=== PATIENT | female | born 1940 | race Caucasian/White ===

== ENCOUNTER → 2024-02-01 15:05 | Outpatient (REF) | payer OTHER, SELFPAY | LOC: RAD 15:05 | PROVIDERS: ATTENDING PHYSICIAN Nurse Practitioner; FAMILY PHYSICIAN Internal Medicine | DX: M54.50 Low back pain, unspecified (principal); M25.559 Pain in unspecified hip | CPT/HCPCS: 72100; 73502 ==

== ENCOUNTER → 2024-02-25 14:51 | Outpatient (REF) | payer OTHER, SELFPAY | LOC: PAVMRI 14:51 | PROVIDERS: ATTENDING PHYSICIAN Physical Medicine & Rehabilitation; FAMILY PHYSICIAN Internal Medicine | DX: M54.16 Radiculopathy, lumbar region (principal) | CPT/HCPCS: 72148 ==

== ENCOUNTER → 2024-02-29 12:49 | Outpatient (REF) | payer OTHER, SELFPAY | LOC: RAD 12:49 | PROVIDERS: ATTENDING PHYSICIAN Nurse Practitioner; FAMILY PHYSICIAN Internal Medicine | DX: J06.9 Acute upper respiratory infection, unspecified (principal) | CPT/HCPCS: 71046 ==

== ENCOUNTER → 2024-06-30 15:03 | Outpatient (REF) | payer OTHER, SELFPAY | LOC: RAD 15:03 | PROVIDERS: ATTENDING PHYSICIAN Nurse Practitioner | DX: R10.11 Right upper quadrant pain (principal) | CPT/HCPCS: 74176 ==

== ENCOUNTER → 2024-07-01 06:51 | Day surgery (SDC) | payer OTHER, SELFPAY | LOC: CATH 06:51 | PROVIDERS: ATTENDING PHYSICIAN Internal Medicine Cardiovascular Disease; FAMILY PHYSICIAN Internal Medicine; OTHER PHYSICIAN Nuclear Medicine Nuclear Cardiology | DX: I48.91 Unspecified atrial fibrillation (principal); Z53.09 Procedure and treatment not carried out because of other contraindication; I10 Essential (primary) hypertension; E78.00 Pure hypercholesterolemia, unspecified; K21.9 Gastro-esophageal reflux disease without esophagitis; G47.33 Obstructive sleep apnea (adult) (pediatric); Z79.01 Long term (current) use of anticoagulants ==

== ENCOUNTER → 2024-07-08 06:54 | Day surgery (SDC) | payer OTHER, SELFPAY | LOC: CATH 06:54 | PROVIDERS: ATTENDING PHYSICIAN Internal Medicine; FAMILY PHYSICIAN Internal Medicine; OTHER PHYSICIAN Nuclear Medicine Nuclear Cardiology | DX: I48.91 Unspecified atrial fibrillation (principal); Z53.09 Procedure and treatment not carried out because of other contraindication; I10 Essential (primary) hypertension; E78.00 Pure hypercholesterolemia, unspecified; K21.9 Gastro-esophageal reflux disease without esophagitis; G47.33 Obstructive sleep apnea (adult) (pediatric); Z79.01 Long term (current) use of anticoagulants | CPT/HCPCS: 93005 ==

== ENCOUNTER → 2024-07-15 15:48 | Outpatient (REF) | payer OTHER, SELFPAY | LOC: RCS 15:48 | PROVIDERS: ATTENDING PHYSICIAN Nuclear Medicine Nuclear Cardiology; FAMILY PHYSICIAN Internal Medicine | DX: I10 Essential (primary) hypertension (principal); I48.91 Unspecified atrial fibrillation | CPT/HCPCS: 93306 ==

== ENCOUNTER → 2024-08-26 13:12 | Outpatient (REF) | payer OTHER, SELFPAY | LOC: WDC 13:12 | PROVIDERS: ATTENDING PHYSICIAN Nurse Practitioner | DX: Z12.31 Encounter for screening mammogram for malignant neoplasm of breast (principal) | CPT/HCPCS: 77063; 77067 ==

== ENCOUNTER 2024-09-01 12:24 | Emergency (ER) | payer OTHER, SELFPAY ==
[2024-09-01 12:29] VITALS: BP 118/53
[2024-09-01 12:52] LABS: % Basophils 0.8 % (0-2); % Eosinophils 2.8 % (0-6); % Immature Granulocytes 0.2 % (0-0.5); % Monocytes 10.2 % (1.7-9.3); Absolute Basophils 0.1 10^3/uL (0-0.2); Absolute Eosinophils 0.2 10^3/uL (0-0.7); Absolute Lymphocytes 1.7 10^3/uL (1.2-3.4); Absolute Monocytes 0.7 10^3/uL (0.1-0.6); Absolute Neutrophils 3.8 10^3/uL (1.4-6.5); Hematocrit 35.6 % (37.0-47.0); Hemoglobin 11.7 g/dL (12.0-16.0); Mean Corp Hgb Conc. 32.9 g/dL (33.0-37.0); Mean Corpuscular Hgb 26.7 pg (27.0-31.0); Mean Corpuscular Volume 81.3 fL (81.0-99.0); Mean Platelet Volume 9.4 fL (7.4-10.4); Nucleated Red Blood Cells % 0 %; Platelet Count 281 10^3/uL (130-400); Red Blood Cell Count 4.38 10^6/uL (4.20-5.40); Red Cell Dist. Width 15.1 % (11.5-14.5); White Blood Cell Count 6.4 10^3/uL (4.8-10.8)
[2024-09-01 13:10] LABS: ALT (SGPT) 19 U/L (0-35); AST (SGOT) 21 U/L (14-36); Albumin 4.3 g/dl (3.5-5.0); Alkaline Phosphatase 116 U/L (38-126); Blood Urea Nitrogen 24 mg/dl (7-17); Calcium 9.6 mg/dl (8.4-10.2); Chloride 102 mmol/L (98-107); Glucose 94 mg/dl (70-99); Potassium 3.6 mmol/L (3.5-5.1); Sodium 140 mmol/L (135-145); Total Bilirubin 0.2 mg/dl (0.2-1.3); Total Protein 6.6 g/dl (6.3-8.2); eGFR 29.76
[2024-09-01 13:15] LABS: NT-proBNP 71.7 pg/ml; Troponin I < 0.012 ng/ml
[2024-09-01 13:18] LABS: Carbon Dioxide 24 mmol/L (22-30)
--- NOTE | 2024-09-01 13:36 | ED.GENMED ---
History of Present Illness
General
Chief Complaint: Breathing Problem
Source: patient
Time Seen by Provider: 09/01/24 13:26
History of Present Illness
History of Present Illness:
84yoF with a history of atrial fibrillation on Eliquis, hypertension, hyperlipidemia, COPD, and GERD presenting for evaluation of shortness of breath. Patient started with shortness of breath last weekend. Symptoms are mainly on exertion. She was
grocery shopping 3 days ago when she thought she was going to pass out due to her dyspnea. She has minimal symptoms at rest. She also is having chest heaviness but denies any overt pain. Of note, patient returned from a trip to [place] on 08/14/24.
She had bilateral leg swelling after she returned from her trip. Her Lasix dose was doubled for 5 days and she was instructed to wear compression stockings. Her leg swelling has since improved and she denies any calf pain. She reports compliance
with her Eliquis and has not missed any doses.
Past History
Past History
ED Past Medical History: Arrthythmia (A. fib), COPD, HTN and Hypercholesterolemia
ED Past Surgical History: Cardiac (Cardiac ablation) and Gynecological (Hysterectomy)
Social History
Tobacco: Non-smoker
Alcohol: Occasional
Drug: None
Personal:
Living: with family
Phy Exam
General Physical Exam
General Presentation: well appearing and no apparent distress
General age: appears stated age
General Skin: warm and dry
General Habitus: normal and elderly
General Mental: alert
General Hydration: appears well hydrated
ENT Exam
ENT Exam: normocephalic
Cardiovascular Exam
Cardiovascular Exam: regular rate/rhythm, no edema (No pitting edema in bilateral lower extremities) and no murmur
Pulmonary Exam
Pulmonary Exam: lungs clear, no respiratory distress, no rales and no rhonchi
[place] Coma Scale
Eye Opening: Spontaneous
Verbal Response: Oriented
Motor Response: Obeys Commands
GCS Total Score: 15
Skin Exam
Skin Exam: normal color and warm/dry
Psychiatric Exam
Psychiatric Exam: normal mood/affect
Scores
Heart Failure Risk
Heart Failure Risk Score: Not Applicable
Course
Orders/Labs/Results
Orders:
Orders
09/01/24 12:31
Electrocardiogram (*1) Urgent
Reason for Study: Other
Other Reason for Exam: Respiratory Distress
EKG- Treatment ONCE
09/01/24 12:43
Complete Blood Count/With Diff Urgent
Comprehensive Metabolic Panel Urgent
NT-proBNP Urgent
Troponin I Urgent
09/01/24 13:42
CR Chest - 2 Views Urgent
Comment:
Reason For Exam: SOB
Venous Doppler Lwr Ext Bilat [US Periph Venous LOWER Ext Mitchell] Urgent
Comment:
Reason For Exam: Bilateral leg swelling, recent travel
09/01/24 13:56
D-Dimer Urgent
09/01/24 15:[address] Non Medication Order As Directed
Physician Order: ambulatory pulse ox
Abnormal Lab Results
09/01/24
12:43
Hgb 11.7 L g/dL
(12.0-16.0)
Hct 35.6 L %
(37.0-47.0)
MCH 26.7 L pg
(27.0-31.0)
MCHC 32.9 L g/dL
(33.0-37.0)
RDW 15.1 H %
(11.5-14.5)
Absolute Monos (auto) 0.7 H 10^3/uL
(0.1-0.6)
Monocytes % 10.2 H %
(1.7-9.3)
BUN 24 H mg/dl
(7-17)
Creatinine 1.7 H mg/dL
(0.6-1.0)
09/01/24 12:43
09/01/24 12:43
Vital Signs
Initial and Last Documented VS:
Initial Vital Signs
Temp Pulse Resp BP Pulse Ox
98.1 F 76 19 118/53 96
09/01/24 12:29 09/01/24 12:29 09/01/24 12:29 09/01/24 12:29 09/01/24 12:29
Last Documented Vital Signs
Temp Pulse Resp BP Pulse Ox
98.1 F 76 19 118/53 96
09/01/24 12:29 09/01/24 12:29 09/01/24 12:29 09/01/24 12:29 09/01/24 12:29
MDM/Problems Addressed
Differential Diagnosis Includes:
84yoF here with SOB x several days. Symptoms are mainly exertional. Also c/o chest heaviness. Recent plane ride from [place] 2 weeks ago. Currently on Eliquis for afib. She is afebrile and hemodynamically stable. Oxygen saturation 96% in triage and
98-100% during exam. She is well appearing in no distress. Lungs CTA and respirations non-labored. Differential diagnosis includes but is not limited to: ACS, CHF, PE, pneumonia
Initial ED plan: Cardiac labs and EKG obtained in triage. Hemoglobin minimally decreased at 11.7. Creatinine 1.7 (baseline 1.5-1.6) Remainder of labs unremarkable. EKG shows NSR without ischemic changes. Troponin and BNP normal. Will check D-dimer,
CXR, and bilateral venous duplex.
*EKG
Interpreted by ED Provider?: Yes
EKG Intrepretation Date: 09/01/24
Heart Rate: 69
Rate: normal
Rhythm: sinus
[place]: normal axis
Interval: first degree heart block
QRS Pattern: normal QRS
Ischemia: no ischemia
*Critical Care Note
Total Time (30-74mins, 75-104mins- exclusive of procedures): Not Applicable
Update Note
Update Note:
D-dimer making PE very unlikely and bilateral venous duplex negative for DVT. CXR is clear without infiltrates. Oxygen saturation remains in the high 90s on multiple reassessments. Ambulatory pulse ox obtained and she maintained 97% throughout.
Patient also reports symptomatic improvement. No indication for admission. Advised f/u with PCP and logistics director. ED return precautions discussed. She expressed understanding and is agreeable to plan. She was discharged in stable condition.
ED Attending Note
-
Portions of this chart may have been created with voice recognition software.� Occasional wrong word or��sound alike� substitutions may have occurred due to the inherent limitations of voice recognition software.
Discharge Plan
Departure
Patient Disposition: Home (Routine Discharge)
Date of Disposition: 09/01/24
Time of Disposition: 15:58
Patient with high blood pressure during this ER visit?: No
Discharge Problem:
Shortness of breath
Instructions: Shortness of Breath (Dyspnea) (DC)
Prescriptions:
No Action
omeprazole 40 MG capsule,delayed release(DR/EC)
40 mg PO DAILY
Eliquis 5 MG tablet
5 mg PO BID
famotidine 40 MG tablet
40 mg PO PRN PRN (Reason: gastrointestinal issues)
mirtazapine 15 MG tablet
15 mg PO HS
losartan 50 MG tablet
100 mg PO DAILY
Trelegy Ellipta 1 EACH blister with device
1 ea IH HS
diltiazem HCl 180 mg capsule,extended release 24hr
180 mg PO BID Qty: 30 0RF
albuterol 90 mcg/actuation Aerosol
45 mcg INHALATION DAILY
fluoxetine [Prozac] 20 mg Capsule
20 mg PO DAILY
fluticasone propionate 50 mcg/actuation [place],Suspension
1 spray INTRANASAL DAILY
Systane Complete 0.6 % Drops
1 drp OPHTHALMIC (EYE) TID PRN (Reason: dry eyes)
atorvastatin 20 mg tablet
20 mg PO HS Qty: 90 3RF
Rx Instructions:
STOP simvastatin
furosemide 40 mg tablet
40 mg PO DAILY Qty: 90 3RF
Rx Instructions:
Note increased dose
Referrals:
Lucita Nelson MD [Family Provider] -
Activity Restrictions/Additional Instructions:
Please follow-up with your family doctor and logistics director. Return to the ER with any new or worsening symptoms.
Interventions
Interventions:
*Risk Screen - Suicide Last Done: 09/01/24 12:29
*General Assessment Last Done: 09/01/24 12:29
*Neglect/Abuse Screening Last Done: 09/01/24 12:29
ED- Fall Risk Assessment Last Done: 09/01/24 16:20
*Nursing Disposition Last Done: 09/01/24 16:20
ED- Cardiac Assessment Last Done: 09/01/24 14:00
ED- Pulmonary Assessment Last Done: 09/01/24 14:00
Discharge Date and Time
Discharge Date/Time: 09/01/24 16:21
Print Language: ITALIAN
[2024-09-01 14:30] LABS: D-Dimer < 0.27 ug/mlFEU (0.00-0.50)
== END 2024-09-01 16:21 | disposition home or self-care (01) ==
LOC: EMR 12:24
PROVIDERS: Emergency Medicine; Physician Assistant; EMERGENCY PHYSICIAN Emergency Medicine; FAMILY PHYSICIAN Internal Medicine
DX: R06.02 Shortness of breath (principal); I10 Essential (primary) hypertension; E78.00 Pure hypercholesterolemia, unspecified; I48.91 Unspecified atrial fibrillation; Z79.01 Long term (current) use of anticoagulants; J44.9 Chronic obstructive pulmonary disease, unspecified; K21.9 Gastro-esophageal reflux disease without esophagitis
CPT/HCPCS: 99285; 71046; 80053; 83880; 84484; 85025; 85379; 93005; 93970

== ENCOUNTER 2024-10-03 07:51 | Inpatient (IN) | payer OTHER, SELFPAY ==
[2024-10-03 08:33] VITALS: BP 121/72
[2024-10-03 08:34] VITALS: BMI 31.4
--- NOTE | 2024-10-03 09:05 | W.PN.CARDCBS ---
Addendum entered and electronically signed by Vidal Huggins DO 10/03/24 12:00:
I saw and examined the patient.
The Waiter/Waitress Formal's note was reviewed and I agree with the note.
Comment:
-Patient presents to the hospital today, 10/03/24, for Tikosyn loading following office visit 09/13/2024. Patient was seen in the office on 09/13/2024 and was in sinus rhythm at that time, but complained of ongoing dyspnea. Patient then wore a 5-day
CAM monitor as an outpatient that showed frequent atrial fibrillation. Patient has a history of PVI in 2017 and 2021. She is chronically on Cardizem CD 180 mg BID and Eliquis 5 BID. Patient is in atrial flutter currently.
Plan:
Tikosyn load 125mcg BID
Monitor EKG
Outpatient dose of Eliquis 5 mg BID will be changed to 2.5 mg BID based on age 84, Cre 1.5 and wt 182 lbs. No missed doses of Eliquis.
CV thursday if she fails to convert on her own.
Original Note:
Today's Communication / Plan
-
Start Tikosyn 125 mcg q 12 hours, CrCl is 38
Lower dose of Eliquis to 2.5 mg BID based on Cre 1.5 and age 84
Impression / Plan
-
PCP: Dr. Nelson
Cardiology: Dr. Huggins
Pulm: Dr. Horn
Impression:
Direct admission for Tikosyn load 10/03/24
Paroxysmal Afib
s/p PVI 06/29/18
s/p PVI 04/08/22
Chronic Eliquis therapy
Atypical atrial flutter
CKD 3b
Nonobstructive CAD by cath 06/2023
medical management of a small caliber 70% OM-1 lesion by cath 06/24/23
COPD/asthma
Sleep apnea
Depression on fluoxetine
Hypertension
Hypercholesterolemia
History of remote SVT
GERD
Echo 07/15/2024: EF 60 to 65%, no significant valve disease
Plan:
-Patient presents to the hospital today, 10/03/24, for Tikosyn loading following office visit 09/13/2024. Patient was seen in the office on 09/13/2024 and was in sinus rhythm at that time, but complained of ongoing dyspnea. Patient then wore a 5-day
CAM monitor as an outpatient that showed frequent atrial fibrillation. Patient has a history of PVI in 2017 and 2021. She is chronically on Cardizem CD 180 mg BID and Eliquis 5 BID. Patient is in atrial flutter currently.
-Patient did not take any of her usual medications at home today, now doses for all daily meds have been ordered.
-CrCl calculated by me is 38, we will start Tikosyn 125 mcg every 12 hours now.
-ECG reviewed by me shows QTc 415 ms and what looks like atypical atrial flutter
-Follow QTc, outpatient dose of Prozac 20 mg daily has been continued.
-Outpatient dose of Eliquis 5 mg BID will be changed to 2.5 mg BID based on age 84, Cre 1.5 and wt 182 lbs. No missed doses of Eliquis.
-CV Thursday if she fails to convert on her own
Progress Note - Bonding Machine Setter
Subjective
Date of Service: October 03, 2024
Feels overwhelmed, but no chest pain
Objective
Labs:
CBC 10/03/2024: WBC 11.1, hemoglobin 0.8, hematocrit 36.9, PLT 250,000
CMP 10/03/2024: Sodium 139, potassium 4.1, BUN 37, creatinine 1.5, magnesium 2.4, AST 20, ALT 19
Vital Signs and I&O:
Vital Signs
Temp Resp Pulse Ox
98 F 16 96
10/03/24 08:34 10/03/24 08:34 10/03/24 08:34
Vital Signs
Temp Resp Pulse Ox
98 F 16 96
10/03/24 08:34 10/03/24 08:34 10/03/24 08:34
Physical Exam
Physical Exam
GEN: NAD. AAOx3
HEENT: EOMI, MMM, wearing glasses
LUNGS: CTA B/L, no audible wheeze
CV: Atrial flutter on tele. Irreg irreg, S1/S2, no murmur
ABD: soft, BS+, NT, ND
EXT: No clubbing, cyanosis, lesions or edema B/L
NEURO: Gross non-focal
SKIN: Warm, dry and pink. No rash
[2024-10-03 09:19] VITALS: BMI 31.4
[2024-10-03 09:43] LABS: % Basophils 0.4 % (0-2); % Eosinophils 1.4 % (0-6); % Immature Granulocytes 0.4 % (0-0.5); % Lymphocytes 28.1 % (20.5-51.1); % Monocytes 7.4 % (1.7-9.3); % Neutrophils 62.3 % (42.2-75.2); Absolute Eosinophils 0.2 10^3/uL (0-0.7); Absolute Lymphocytes 3.1 10^3/uL (1.2-3.4); Absolute Monocytes 0.8 10^3/uL (0.1-0.6); Absolute Neutrophils 6.9 10^3/uL (1.4-6.5); Hematocrit 36.9 % (37.0-47.0); Hemoglobin 11.8 g/dL (12.0-16.0); Mean Corpuscular Hgb 27.3 pg (27.0-31.0); Mean Corpuscular Volume 85.2 fL (81.0-99.0); Mean Platelet Volume 9.3 fL (7.4-10.4); Nucleated Red Blood Cells % 0 %; Platelet Count 250 10^3/uL (130-400); Red Blood Cell Count 4.33 10^6/uL (4.20-5.40); Red Cell Dist. Width 15.9 % (11.5-14.5); White Blood Cell Count 11.1 10^3/uL (4.8-10.8)
[2024-10-03 10:07] LABS: ALT (SGPT) 19 U/L (0-35); AST (SGOT) 20 U/L (14-36); Albumin 4.4 g/dl (3.5-5.0); Alkaline Phosphatase 113 U/L (38-126); Blood Urea Nitrogen 37 mg/dl (7-17); Calcium 9.4 mg/dl (8.4-10.2); Carbon Dioxide 26 mmol/L (22-30); Chloride 103 mmol/L (98-107); Estimated Creatinine Clearance 30 ml/min; Glucose 80 mg/dl (70-99); Magnesium 2.4 mg/dl (1.6-2.3); Potassium 4.1 mmol/L (3.5-5.1); Sodium 139 mmol/L (135-145); Total Bilirubin 0.2 mg/dl (0.2-1.3); Total Protein 6.7 g/dl (6.3-8.2); eGFR 34.58
[2024-10-03] MEDS: ProAIR HFA INHALER 1 PUFF INH (10:16)
[2024-10-03] MEDS: SYMBICORT 80/4.5 MCG INHALER 2 PUFF INH ×2 (10:16→19:26)
[2024-10-03] MEDS: SPIRIVA RESPIMAT 2.5 MCG 2 PUFF INH (10:16)
[2024-10-03] MEDS: CARDIZEM CD 180 MG PO ×2 (10:32→20:38)
[2024-10-03] MEDS: PROTONIX 40 MG PO (10:32)
[2024-10-03] MEDS: PEPCID 40 MG PO ×2 (10:33→20:38)
[2024-10-03] MEDS: PROZAC 20 MG PO (10:33)
[2024-10-03] MEDS: LASIX 40 MG PO (10:33)
[2024-10-03] MEDS: ELIQUIS 5 MG PO (10:33)
[2024-10-03] MEDS: COZAAR 100 MG PO (10:33)
--- NOTE | 2024-10-03 10:38 | PTCARENOTE ---
patient is a direct admit this am for Tom. Giuliana JOHNS aware and in seeing patient. patient placed on monitor Afib, VSS. EKG obtained, blood work done and sent to lab. INT placed in right AC. patient oriented to room and surroundings.
--- NOTE | 2024-10-03 10:40 | W.CARD.TIKOS ---
Initiate Tikosyn
-
I verify that the patient has not taken any verapamil (Isoptin/Calan), ketoconazole (Nizoral), cimetidine (Tagamet), trimethoprim (Trimpex), trimethoprim/sulfamethoxazole (Bactrim), megesterol (Megace), prochlorperazine (Compazine),
hydrochlorothiazide (HCTZ), dolutegravir (Tivicay) or any Class I or Class III anti-arrhythmic within the last three days
AND
I verify that the patient has not taken amiodarone within the last THREE months, or that the patient's amiodarone plasma concentration is <0.3 mcg/mL.
Creatinine 1.5 mg/dL (0.6-1.0) H 10/03/24 09:37
Estimated Creat Clear 30 ml/min 10/03/24 09:37
CrCl calculated by me is 38
Does patient have a Ventricular Conduction Abnormality: No
I have assessed the baseline QTc interval (using QT for heart rate less than 60 bpm) and deemed the patient is appropriate for Dofetilide therapy. I understand that Tikosyn is contraindicated if the QTc is >440msec (500msec in patients with
ventricular conduction abnormalities).
Baseline QTc (in msec): 415
Ordering Physician: Vidal Huggins
[2024-10-03] MEDS: TIKOSYN 125 MCG PO ×2 (11:00→22:03)
[2024-10-03 11:42] VITALS: BP 127/60
--- NOTE | 2024-10-03 13:36 | CM ---
spoke to pt in room, she is prev indep, lives with her cousin in a 1 story home with 2 steps to enter. she denies any dc planning needs. she has a CPAP she uses. plan is for dc to home when medically stable
[2024-10-03 15:22] VITALS: BP 103/60
[2024-10-03 19:42] VITALS: BP 98/47
[2024-10-03 20:35] VITALS: BP 94/51
[2024-10-03] MEDS: ELIQUIS 2.5 MG PO (20:38)
[2024-10-03] MEDS: REMERON 15 MG PO (22:01)
[2024-10-03] MEDS: LIPITOR 20 MG PO (22:01)
[2024-10-04] VITALS (8 sets, daily range): BP systolic 99–126; BP diastolic 42–61; BMI 31.2
--- NOTE | 2024-10-04 00:12 | PTCARENOTE ---
Pt received 2nd dose Tikosyn @2200 and 2 hours post EKG QTc 430.
[2024-10-04] MEDS: AMBIEN 5 MG PO (01:12)
[2024-10-04 05:38] LABS: Hemoglobin 11.2 g/dL (12.0-16.0); Mean Corpuscular Hgb 27.7 pg (27.0-31.0); Mean Corpuscular Volume 86.4 fL (81.0-99.0); Mean Platelet Volume 9.3 fL (7.4-10.4); Platelet Count 221 10^3/uL (130-400); Red Blood Cell Count 4.05 10^6/uL (4.20-5.40); White Blood Cell Count 8.7 10^3/uL (4.8-10.8)
[2024-10-04 06:04] LABS: Blood Urea Nitrogen 30 mg/dl (7-17); Calcium 8.7 mg/dl (8.4-10.2); Carbon Dioxide 25 mmol/L (22-30); Chloride 103 mmol/L (98-107); Estimated Creatinine Clearance 32 ml/min; Glucose 86 mg/dl (70-99); Potassium 3.9 mmol/L (3.5-5.1); Sodium 139 mmol/L (135-145); eGFR 37.56
[2024-10-04] MEDS: ProAIR HFA INHALER 1 PUFF INH (07:33)
[2024-10-04] MEDS: SYMBICORT 80/4.5 MCG INHALER 2 PUFF INH ×2 (07:33→19:24)
[2024-10-04] MEDS: SPIRIVA RESPIMAT 2.5 MCG 2 PUFF INH (07:33)
--- NOTE | 2024-10-04 09:00 | W.PN.CARDCBS ---
Addendum entered and electronically signed by Jessica Gillis MD 10/04/24 09:32:
I saw and examined the patient.
The [employer] Gold Attendant's note was reviewed and I agree with the note.
Comment: Patient with some shortness of breath with activity which she tells me is common with atrial fibrillation. She appears to have converted to sinus rhythm on telemetry monitoring.
Exam not significantly volume overloaded.
Continue dofetilide load with checking EKG and telemetry.
Reassess patient today if she remains short of breath consider chest x-ray.
Will add proBNP.
Original Note:
Today's Communication / Plan
-
5th dose of Tikosyn in AM
QTc stable after 2nd dose last night and also spontaneously converted to SR
Follow-up SOB later today, was just on a 12 course of prednisone ordered by her tire debeader that finished 09/26/24
Impression / Plan
-
PCP: Dr. Nelson
Cardiology: Dr. Huggins
Pulm: Dr. Horn
Impression:
Direct admission for Tikosyn load 10/03/24
Paroxysmal Afib
s/p PVI 06/29/18
s/p PVI 04/08/22
Chronic Eliquis therapy
Atypical atrial flutter
CKD 3b
Nonobstructive CAD by cath 06/2023
medical management of a small caliber 70% OM-1 lesion by cath 06/24/23
COPD/asthma
Sleep apnea
Depression on fluoxetine
Hypertension
Hypercholesterolemia
History of remote SVT
GERD
Echo 07/15/2024: EF 60 to 65%, no significant valve disease
Plan:
-QTc stable at 430 after 2nd dose of Tikosyn 125 mcg q 12 hours that was given Thursday night. 3rd dose given Thursday morning and await ECG.
-Spontaneously converted to SR overnight and remains in SR
-Outpatient dose of Eliquis 5 mg BID was changed to 2.5 mg BID based on age 84, Cre 1.5 and wt 182 lbs on 10/03/24. Cre improved to 1.4 on 10/04/24 and so Eliquis dose increased back to 5 mg BID including an extra 2.5 mg dose on 10/04/24 AM. No
missed doses of Eliquis.
-Follow QTc, outpatient dose of Prozac 20 mg daily has been continued.
-SOB with washing up in the room, but says this is not far from her baseline. Patient follows with Pulm as an outpatient and was placed on a 12 day course of prednisone 09/14/24 which is now done. She is ordered her usual inhalers. Pulse ox 98% on RA
-Likely d/c to home 10/05/24 pending rhythm and QTc
HPI: Patient presents to the hospital today, 10/03/24, for Tikosyn loading following office visit 09/13/2024. Patient was seen in the office on 09/13/2024 and was in sinus rhythm at that time, but complained of ongoing dyspnea. Patient then wore a
5-day CAM monitor as an outpatient that showed frequent atrial fibrillation. Patient has a history of PVI in 2017 and 2021. She is chronically on Cardizem CD 180 mg BID and Eliquis 5 BID. Patient is in atrial flutter currently.
Progress Note - Buttonhole Maker Hand
Subjective
Date of Service: October 04, 2024
She is SOB after washing up
Objective
Labs:
10/04/24 05:01
10/04/24 05:01
Labs
Hgb 11.2 g/dL (12.0-16.0) L 10/04/24 05:01
Hct 35.0 % (37.0-47.0) L 10/04/24 05:01
Plt Count 221 10^3/uL (130-400) 10/04/24 05:01
Sodium 139 mmol/L (135-145) 10/04/24 05:01
Potassium 3.9 mmol/L (3.5-5.1) 10/04/24 05:01
BUN 30 mg/dl (7-17) H 10/04/24 05:01
Creatinine 1.4 mg/dL (0.6-1.0) H 10/04/24 05:01
Glucose 86 mg/dl (70-99) 10/04/24 05:01
Vital Signs and I&O:
Vital Signs
Temp Pulse Resp BP Pulse Ox
97.5 F 84 18 126/59 98
10/04/24 08:10 10/04/24 07:41 10/04/24 08:10 10/04/24 04:52 10/04/24 08:10
Vital Signs
Temp Pulse Resp BP Pulse Ox
97.5 F 84 18 126/59 98
10/04/24 08:10 10/04/24 07:41 10/04/24 08:10 10/04/24 04:52 10/04/24 08:10
Physical Exam
Physical Exam
GEN: NAD. AAOx3
HEENT: EOMI
LUNGS: RA. No audible wheeze
CV: SR on tele
ABD: ND
EXT: No edema B/L
NEURO: Gross non-focal
SKIN: No rash
[2024-10-04] MEDS: LASIX 40 MG PO (09:12)
[2024-10-04] MEDS: ELIQUIS 2.5 MG PO ×2 (09:12→09:32)
[2024-10-04] MEDS: PEPCID 40 MG PO ×2 (09:13→20:09)
[2024-10-04] MEDS: PROTONIX 40 MG PO (09:13)
[2024-10-04] MEDS: PROZAC 20 MG PO (09:13)
[2024-10-04] MEDS: CARDIZEM CD 180 MG PO ×2 (09:13→20:08)
[2024-10-04] MEDS: TIKOSYN 125 MCG PO ×2 (09:13→20:09)
[2024-10-04] MEDS: COZAAR 100 MG PO (09:17)
[2024-10-04 10:37] LABS: NT-proBNP 133 pg/ml
[2024-10-04] MEDS: ELIQUIS 5 MG PO (20:09)
[2024-10-04] MEDS: LIPITOR 20 MG PO (22:08)
[2024-10-04] MEDS: REMERON 15 MG PO (22:08)
--- NOTE | 2024-10-04 22:31 | PTCARENOTE ---
Pt received 4th dose Tikosyn with 2hour f/u EKG SR QTc 444
--- NOTE | 2024-10-05 04:08 | DOWNTIME ---
There was a [employer] Client Podiatry Teacher Downtime on 10/05/2024 from 0100 to 10/05/2024 at 0350. Downtime documentation of patient's care, including medication administrations, has been reconciled in the electronic record per guidelines. Refer to the
patient's paper chart under the miscellaneous tab to see printed paper medication records and downtime forms.
[2024-10-05 04:55] VITALS: BP 138/65
[2024-10-05 04:56] VITALS: BMI 31.4
[2024-10-05 05:41] LABS: Blood Urea Nitrogen 27 mg/dl (7-17); Calcium 8.7 mg/dl (8.4-10.2); Carbon Dioxide 23 mmol/L (22-30); Chloride 104 mmol/L (98-107); Estimated Creatinine Clearance 32 ml/min; Glucose 103 mg/dl (70-99); Sodium 138 mmol/L (135-145); eGFR 37.56
[2024-10-05 07:33] VITALS: BP 121/65
[2024-10-05] MEDS: SPIRIVA RESPIMAT 2.5 MCG 2 PUFF INH (07:58)
[2024-10-05] MEDS: ProAIR HFA INHALER 1 PUFF INH (07:59)
[2024-10-05] MEDS: SYMBICORT 80/4.5 MCG INHALER 2 PUFF INH (07:59)
[2024-10-05] MEDS: PROTONIX 40 MG PO (08:06)
[2024-10-05] MEDS: COZAAR 100 MG PO (08:06)
[2024-10-05] MEDS: LASIX 40 MG PO (08:06)
[2024-10-05] MEDS: ELIQUIS 5 MG PO (08:07)
[2024-10-05] MEDS: PEPCID 40 MG PO (08:07)
[2024-10-05] MEDS: PROZAC 20 MG PO (08:07)
[2024-10-05] MEDS: CARDIZEM CD 180 MG PO (08:08)
[2024-10-05] MEDS: TIKOSYN 125 MCG PO (08:12)
--- NOTE | 2024-10-05 08:47 | PTCARENOTE ---
Assumed care of pt from night RN. Pt received awake and alert, Ox3. VSS, CM shows NSR/SB 60's, POX 95% on RA. Tikosyn dose # 5 given, EKG pending in 2 hrs. Pt denies any pain or discomfort.
--- NOTE | 2024-10-05 08:48 | W.PN.CARDCBS ---
Addendum entered and electronically signed by Susanna Durand PA-C 10/05/24 16:38:
Dictation #[id number]
Original Note:
Today's Communication / Plan
-
Continue Tikosyn 250 mcg Q12H.
Follow QTc
If QTc stable this AM, ok for discharge
Impression / Plan
-
PCP: Dr. Nelson
Cardiology: Dr. Huggins
Pulm: Dr. Horn
Impression:
Direct admission for Tikosyn load 10/03/24
Paroxysmal Afib
s/p PVI 06/29/18
s/p PVI 04/08/22
Chronic Eliquis therapy
Atypical atrial flutter
CKD 3b
Nonobstructive CAD by cath 06/2023
medical management of a small caliber 70% OM-1 lesion by cath 06/24/23
COPD/asthma
Sleep apnea
Depression on fluoxetine
Hypertension
Hypercholesterolemia
History of remote SVT
GERD
Echo 07/15/2024: EF 60 to 65%, no significant valve disease
Plan:
-Presented for Tikosyn loading 10/03/2024. QTc has been stable on Tikosyn 125 mcg every 12 hours.
-For fifth dose this AM. Await EKG and if QTc stable, okay for discharge. QTc on ECG in PM 10/04/2024 was 444ms.
-Spontaneously converted to sinus rhythm and remains in sinus rhythm this AM on tele
-continue Eliquis 5 mg twice daily. Creat 1.4.
-Continues on Prozac 20 mg daily.
-Continues with some DANIELLE which is her baseline.
-Follow-up arranged in the office.
HPI: Patient presents to the hospital today, 10/03/24, for Tikosyn loading following office visit 09/13/2024. Patient was seen in the office on 09/13/2024 and was in sinus rhythm at that time, but complained of ongoing dyspnea. Patient then wore a
5-day CAM monitor as an outpatient that showed frequent atrial fibrillation. Patient has a history of PVI in 2017 and 2021. She is chronically on Cardizem CD 180 mg BID and Eliquis 5 BID. Patient is in atrial flutter currently.
Progress Note - Project Leader
Subjective
Date of Service: October 05, 2024
Continues w/ SOB which is her baseline
Objective
Labs:
10/04/24 05:01
10/05/24 05:03
Labs
Hgb 11.2 g/dL (12.0-16.0) L 10/04/24 05:01
Hct 35.0 % (37.0-47.0) L 10/04/24 05:01
Plt Count 221 10^3/uL (130-400) 10/04/24 05:01
Sodium 138 mmol/L (135-145) 10/05/24 05:03
Potassium 4.0 mmol/L (3.5-5.1) 10/05/24 05:03
BUN 27 mg/dl (7-17) H 10/05/24 05:03
Creatinine 1.4 mg/dL (0.6-1.0) H 10/05/24 05:03
Glucose 103 mg/dl (70-99) H 10/05/24 05:03
Vital Signs and I&O:
Vital Signs
Temp Pulse Resp BP Pulse Ox
98.5 F 74 18 121/65 95
10/05/24 07:31 10/05/24 08:05 10/05/24 08:05 10/05/24 07:33 10/05/24 08:40
Vital Signs
Temp Pulse Resp BP Pulse Ox
98.5 F 74 18 121/65 95
10/05/24 07:31 10/05/24 08:05 10/05/24 08:05 10/05/24 07:33 10/05/24 08:40
Intake & Output
10/03/24 10/04/24 10/05/24 10/06/24
06:59 06:59 06:59 06:59
Intake Total 120 / 120
Balance 120 / 120
Physical Exam
Physical Exam
GEN: No distress, awake, alert, oriented x3
HEENT: supple, anicteric, mmm
LUNGS: CTA b/l, no wheezes/rales
CV: Reg, S1/S2,no murmur
EXT: No clubbing, cyanosis, or edema
NEURO: Gross non-focal
SKIN: Warm, dry, no rash
[2024-10-05 11:26] VITALS: BP 107/66
--- NOTE | 2024-10-05 12:23 | CM ---
CM following for DC planning needs.
DC plan is for home without needs.
Call to patient's pharmacy; they have Dofetilide 250 mcg in stock; patient will be sent home w/ x3 d supply as well.
Plan: HOME, no needs.
[2024-10-05] MEDS: PREVNAR 20 0.5 ML IM (13:01)
--- NOTE | 2024-10-05 13:16 | PTCARENOTE ---
#5 dose of Tikosyn given as per JAN, repeat EKG showed QTc of441.
--- NOTE | 2024-10-05 13:29 | PTCARENOTE ---
All D/C info reviewed with pt, all questions answered. Prevenar Vax administered to left deltoid as per JAN. Pt D/C'd home.
--- NOTE | 2024-10-05 16:38 | W.DS.TRANS ---
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
-
Discharge Instructions:
Discharge Diagnosis/Procedures Tikosyn loading
Diet Low Cholesterol
Activity As tolerated
Driving Restrictions As prior to admission
Bathing Restrictions OK to Shower
Instructions:
Stand-Alone Forms:
Changes to Home Medications: Yes
Discharge Medications:
DC Medications w/original date entered in [employer]
apixaban 5 mg tablet (Eliquis) 5 mg PO BID Blood Clot Prevention/Tx 06/29/18
omeprazole 40 mg capsule,delayed release 40 mg PO DAILY Gastrointestinal Issue 06/29/18
famotidine 40 mg tablet 40 mg PO DAILY Gastrointestinal Issue 01/22/22
losartan 50 mg tablet 100 mg PO DAILY Blood Pressure 01/22/22
mirtazapine 15 mg tablet 15 mg PO HS Mental Health/Anxiety 01/22/22
fluticasone fur. 100 mcg-umeclid 62.5 mcg-vilant 25 mcg inhalat.powder (Trelegy Ellipta) 1 ea IH HS Lung/Breathing Issues 04/04/22
diltiazem HCl 180 mg capsule,extended release 24 hr 180 mg PO BID #30 caps 07/24/22
albuterol 90 mcg/actuation aerosol inhaler 45 mcg inhalation DAILY Lung/Breathing Issues 06/24/23
atorvastatin 20 mg tablet 20 mg PO HS #90 tabs 06/24/23
fluoxetine 20 mg capsule (Prozac) 20 mg PO DAILY Depression 06/24/23
fluticasone propionate 50 mcg/actuation nasal spray,suspension 1 spray intranasal DAILY Allergies 06/24/23
furosemide 40 mg tablet 40 mg PO DAILY #90 tabs 06/24/23
propylene glycol 0.6 % eye drops (Systane Complete) 1 drp ophthalmic (eye) TID PRN dry eyes 06/24/23
fluticasone fur. 100 mcg-umeclid 62.5 mcg-vilant 25 mcg inhalat.powder (Trelegy Ellipta) 1 inh inhalation DAILY Lung/Breathing Issues 10/03/24
zaleplon 10 mg PO HS Sleep 10/03/24
dofetilide 125 mcg capsule (Tikosyn) 125 mcg PO Q12H #60 caps 10/05/24
Home Medication Changes
dofetilide 125mcg BID is new
Pending Results: No
== END 2024-10-05 14:16 | disposition home or self-care (01) | DRG 310 ==
LOC: IVU 07:51
PROVIDERS: Internal Medicine Cardiovascular Disease; Physician Assistant Medical; ADMITTING PHYSICIAN Nuclear Medicine Nuclear Cardiology; FAMILY PHYSICIAN Internal Medicine
PROC: 3E033RZ Introduction of Antiarrhythmic into Peripheral Vein, Percutaneous Approach (ICD-10-PCS; 2024-10-03)
PROC: 3E0234Z Introduction of Serum, Toxoid and Vaccine into Muscle, Percutaneous Approach (ICD-10-PCS; 2024-10-05)
DX: I48.0 Paroxysmal atrial fibrillation (principal); Z79.01 Long term (current) use of anticoagulants; I48.4 Atypical atrial flutter; N18.32 Chronic kidney disease, stage 3b; I12.9 Hypertensive chronic kidney disease with stage 1 through stage 4 chronic kidney disease, or unspecified chronic kidney disease; J44.89 Other specified chronic obstructive pulmonary disease; G47.30 Sleep apnea, unspecified; F32.A Depression, unspecified; E78.00 Pure hypercholesterolemia, unspecified; K21.9 Gastro-esophageal reflux disease without esophagitis; I25.10 Atherosclerotic heart disease of native coronary artery without angina pectoris; Z23 Encounter for immunization
CPT/HCPCS: 80048; 80053; 83735; 83880; 85025; 85027; 90677; 93005; 94640; G0009

== ENCOUNTER → 2025-04-04 13:35 | Outpatient (REF) | payer OTHER, SELFPAY | LOC: RAD 13:35 | PROVIDERS: ATTENDING PHYSICIAN Nurse Practitioner | DX: M79.2 Neuralgia and neuritis, unspecified (principal); M19.90 Unspecified osteoarthritis, unspecified site | CPT/HCPCS: 73110; 73130; 73610; 73630 ==

== ENCOUNTER → 2025-04-26 10:35 | Outpatient (REF) | payer OTHER, SELFPAY | LOC: EMG 10:35 | PROVIDERS: ATTENDING PHYSICIAN Orthopaedic Surgery; FAMILY PHYSICIAN Internal Medicine | DX: R20.0 Anesthesia of skin (principal) | CPT/HCPCS: 95886; 95911 ==

== ENCOUNTER 2025-05-29 10:17 | Inpatient (IN) | payer OTHER, SELFPAY ==
[2025-05-25] VITALS (37 sets, daily range): BP systolic 100–145; BP diastolic 61–110; BMI 32.0
[2025-05-25 15:28] LABS: Hematocrit 38.9 % (37.0-47.0); Hemoglobin 12.8 g/dL (12.0-16.0); Mean Corp Hgb Conc. 32.9 g/dL (33.0-37.0); Mean Corpuscular Volume 83.5 fL (81.0-99.0); Nucleated Red Blood Cells % 0 %; Platelet Count 421 10^3/uL (130-400); Red Cell Dist. Width 18.1 % (11.5-14.5)
[2025-05-25 15:38] LABS: COVID-19 Antigen Negative (Negative)
[2025-05-25 15:39] LABS: AST (SGOT) 23 U/L (14-36); Albumin 4.5 g/dl (3.5-5.0); Alkaline Phosphatase 154 U/L (38-126); Blood Urea Nitrogen 30 mg/dl (7-17); Calcium 8.9 mg/dl (8.4-10.2); Carbon Dioxide 17 mmol/L (22-30); Chloride 105 mmol/L (98-107); Glucose 189 mg/dl (70-99); Potassium 3.8 mmol/L (3.5-5.1); Sodium 136 mmol/L (135-145); Total Protein 7.0 g/dl (6.3-8.2); eGFR 34.36
[2025-05-25 15:50] LABS: Troponin I 0.019 ng/ml
[2025-05-25 16:08] LABS: ALT (SGPT) 24 U/L (0-35)
--- NOTE | 2025-05-25 18:50 | ED.GENMED ---
History of Present Illness
General
Chief Complaint: Cardiac Symptoms
Source: patient
Time Seen by Provider: 05/25/25 18:25
History of Present Illness
History of Present Illness:
31-year-old female presents to the emergency room complaining of URI type symptoms with nasal congestion, runny nose, nonproductive cough. Symptoms have been present for several days. She has been treated with oral steroids and antibiotics by her
primary. Patient feels no better. She is also been experiencing palpitations and dizziness. She has a history of A-fib and feels like she is becoming in and out of A-fib. She contacted her cardiology group who told her to come to the emergency
room for further evaluation. No known fever.
Past History
Past History
ED Past Medical History: Arrthythmia (A. fib), COPD, HTN and Hypercholesterolemia
ED Past Surgical History: Cardiac (Cardiac ablation) and Gynecological (Hysterectomy)
Social History
Tobacco: Non-smoker
Alcohol: Occasional
Drug: None
Personal:
Living: with family
Phy Exam
Physical Exam
Physical Exam:
General: Awake, Alert, Oriented X3. No acute distress.
Vitals: Tachycardic
Head: Atraumatic
Eyes: Pupils equal, EOMI
Throat: Airway intact, no exudates
Neck: Trachea midline
Lungs: Few experiences bilateral bases
Heart: Regular rate, no murmurs
Abd: Soft, Nontender, No pulsatile mass
Neuro: Nonfocal
Skin: Warm, dry, no rash
Extremities: pulses equal b/l, no edema
Course
Orders/Labs/Results
Orders:
Orders
05/25/25 14:47
EKG [Electrocardiogram (*1)] Urgent
Reason for Study: Atrial Fibrillation
EKG- Treatment ONCE
05/25/25 15:12
COVID-19 Antigen Urgent
Source: Nasal Swab
Complete Blood Count/With Diff Urgent
Comprehensive Metabolic Panel Urgent
NT-proBNP Urgent
Troponin I Urgent
Influenza A+B Rapid Molecular Urgent
RENATA Source: Nasal Swab
Specimen Description:
05/25/25 18:50
Ipratropium/Albuterol Sulfate [Duoneb] 3 ml INH R NOW STA
05/25/25 18:51
CR Chest - 2 Views Urgent
Comment:
Reason For Exam: cough
05/25/25 19:42
Electrocardiogram (*1) Urgent
Reason for Study: Palpitations
EKG- Treatment ONCE
05/25/25 21:09
Propofol [Diprivan] 20 ml .ROUTE .STK-MED
05/25/25 22:34
Diltiazem 125 mg/125 ml Nss [Cardizem] 125 mg in 125 ml IV NOW
Initial dose in mg/hr, then titrate:: 5
Titrate to keep:: Heart rate 80-100 bpm
Titrate by mg/hr:: 5 mg/hr
Frequency of titrations (minutes):: 15
Maximum dose in mg/hr:: 15
Diltiazem HCl [Cardizem] 15 mg IV NOW STA
Abnormal Lab Results
05/25/25
15:12
WBC 11.3 H 10^3/uL
(4.8-10.8)
MCHC 32.9 L g/dL
(33.0-37.0)
RDW 18.1 H %
(11.5-14.5)
Plt Count 421 H 10^3/uL
(130-400)
Abs Immat Gran (auto) 0.1 H 10^3/uL
(0-0.05)
Absolute Neuts (auto) 10.1 H 10^3/uL
(1.4-6.5)
Absolute Lymphs (auto) 0.9 L 10^3/uL
(1.2-3.4)
Neutrophils % 89.1 H %
(42.2-75.2)
Lymphocytes % 7.7 L %
(20.5-51.1)
Carbon Dioxide 17 L mmol/L
(22-30)
BUN 30 H mg/dl
(7-17)
Creatinine 1.5 H mg/dL
(0.6-1.0)
Glucose 189 H mg/dl
(70-99)
Alkaline Phosphatase 154 H U/L
(38-126)
05/25/25 15:12
05/25/25 15:12
Vital Signs
Initial and Last Documented VS:
Initial Vital Signs
Temp Pulse Resp BP Pulse Ox
97.4 F 120 20 113/78 97
05/25/25 14:49 05/25/25 14:49 05/25/25 14:49 05/25/25 14:49 05/25/25 14:49
Last Documented Vital Signs
Temp Pulse Resp BP Pulse Ox
98.1 F 127 12 118/66 94
05/25/25 22:18 05/25/25 22:12 05/25/25 22:12 05/25/25 22:12 05/25/25 22:12
MDM/Problems Addressed
Differential Diagnosis Includes:
A-fib, a flutter, other atrial tachycardia, bronchitis
MDM/Problems Addressed:
Patient presents with cough that is not getting better as well as tachycardia and dizziness when she stands. She is in A-fib. We attempted cardioversion but the patient did not maintain sinus rhythm. Discussed patient's presentation with .
Arturo wilson recommends rate control with Perico and I will see her in the morning give talk about next steps
*Radiology
Radiology exam reviewed: preliminary read by ED provider (No acute abnormality to my review)
*Pulse Oximetry
SaO2: 97
Oxygen Mode of Delivery: Room air
Patient hypoxic: no
*EKG
Interpreted by ED Provider?: Yes
Interpretation: abnormal
Heart Rate: 117
Rate: tachycardiac
Rhythm: a-fib
[place]: normal axis
Interval: normal interval
QRS Pattern: normal QRS
Ischemia: non-specific ST changes
*Bpm Solution Architect Interpretation
Rate: tachycardiac
Interpretation: abnormal
Rhythm: a-fib
*Critical Care Note
Total Time (30-74mins, 75-104mins- exclusive of procedures): Not Applicable
ED Attending Note
-
Portions of this chart may have been created with voice recognition software.� Occasional wrong word or��sound alike� substitutions may have occurred due to the inherent limitations of voice recognition software.
Discharge Plan
Departure
Patient Disposition: Admit
Date of Disposition: 05/25/25
Time of Disposition: 22:36
Admit to: Telemetry
Presentation/result/management discussed w/ accepting MD/DO: Hospitalist
Condition: Fair
Discharge Problem:
Atrial flutter
Prescriptions:
No Action
omeprazole 40 MG capsule,delayed release(DR/EC)
40 mg PO DAILY
Eliquis 5 MG tablet
5 mg PO BID
famotidine 40 MG tablet
40 mg PO DAILY
mirtazapine 15 MG tablet
15 mg PO HS
losartan 50 MG tablet
100 mg PO DAILY
diltiazem HCl 180 mg capsule,extended release 24hr
180 mg PO BID Qty: 30 0RF
fluoxetine [Prozac] 20 mg Capsule
20 mg PO DAILY
fluticasone propionate 50 mcg/actuation [place],Suspension
1 spray INTRANASAL DAILY
Systane Complete 0.6 % Drops
1 drp OPHTHALMIC (EYE) TID PRN (Reason: dry eyes)
atorvastatin 20 mg tablet
20 mg PO HS Qty: 90 3RF
furosemide 40 mg tablet
40 mg PO DAILY Qty: 90 3RF
Rx Instructions:
Note increased dose
Trelegy Ellipta 100-62.5-25 mcg Blister With Device
1 inh INHALATION DAILY
dofetilide [Tikosyn] 125 mcg capsule
125 mcg PO Q12H Qty: 60 11RF
docusate sodium [Colace] 100 mg Capsule
100 mg PO DAILY
zaleplon 10 mg Capsule
10 mg PO HS PRN (Reason: sleep)
loratadine 10 mg Tablet
10 mg PO DAILY PRN (Reason: sob)
levalbuterol tartrate 45 mcg/actuation Hfa Aerosol Inhaler
2 inh INHALATION Q6H
cholecalciferol (vitamin D3) [Vitamin D3] 50 mcg (2,000 unit) Capsule
50 mcg PO DAILY
Referrals:
Lucita Nelson MD [Family Provider, Internal Medicine]
Interventions
Interventions:
*Risk Screen - Suicide Last Done: 05/25/25 14:49
*General Assessment Last Done: 05/25/25 14:49
*Neglect/Abuse Screening Last Done: 05/25/25 18:55
*ED- Fall Risk Assessment Last Done: 05/25/25 18:55
*ED COVID-19 Vaccine History Last Done: 05/25/25 18:55
ED- Pulmonary Assessment Last Done: 05/25/25 18:55
ED- Cardiac Assessment Last Done: 05/25/25 18:55
Discharge Date and Time
Print Language: LAO
[2025-05-25] MEDS: DUONEB 3 ML INH (19:01)
--- NOTE | 2025-05-25 22:40 | HPS.HSE ---
Family Physician
-
Family Physician: Lucita Nelson
Chief Complaint
-
Palpitation
History of Present Illness
This is a 84-year-old female with past medical history significant for atrial flutter/fibrillation status post cardioversion, status post ablation, on anticoagulation, hypertension, hyperlipidemia, GERD, MANUELA, COPD not on home O2, asthma presenting
to the emergency department with palpitations.
Patient reports several days of ongoing URI symptoms including nasal congestion, rhinorrhea, nonproductive cough. She is status post treatment with oral steroids and antibiotics from [facility] and reports no improvement in her symptoms. She denies
having any fevers or chills. She denies any nausea or vomiting. No known sick contacts. She reports that she has been experiencing palpitations and dizziness and feels like her atrial fibrillation is coming out. She did contact her cardiology
group who referred her to the emergency department for evaluation.
She denies any new medications. Completed a course of Z-Glenn. She is currently on a prednisone taper.
Attempted cardioversion in the emergency department without conversion to sinus. Continue to be in rapid atrial fibrillation.
While in emergency department the patient was in rapid atrial fibrillation at a rate of 127. Blood pressure was 118/66. Temp 98.1 and she was satting 94% on room air.
White count was 11.3, hemoglobin and platelets were normal. Electrolytes were stable. Potassium of 3.8, bicarb of 17 and BUN of 30 and a creatinine of 1.5. BNP was 440. Troponin was 0.019. ECG shows atrial flutter at 126 as well as atrial
fibrillation at 117. No acute ST or T wave changes.
Chest x-ray is negative for any acute infiltrates.
COVID test is negative.
Medical History
Past Medical History
Past Medical History: Reports Arrhythmia (Atypical atrial flutter, atrial fibrillation), Asthma, COPD, HTN, Hypercholesterolemia and Other (Obstructive sleep apnea, irritable bowel syndrome)
Past Surgical History: Reports Other
Additional Past Surgical History:
TVH - fibroids - 1974
Tonsillectomy - 194
Bunionectomy x2
B/L Cataract - 2011
Cardioversion - 01/22/22
Cardiac Ablation x2 - 04/08/22
r/L HC - 06/2023 What ? 06/24/23
B/L L4-5,L5-S1 MBB NO SED 05/04/24
L4-5 ILESI NO SED 06/15/24
L5-S1 ILESI NO SED 07/20/24
L5-S1 ILESI NO SED 1.20.25
B/L L4-5 MILD 4.23.25
Social History
Tobacco: Non-smoker
Alcohol: None
Drug: None
Family History
Family History: Not pertinent
Allergies / Home Medications
Allergies reflects when Allergies were last updated in [facility].
Home Medications with original date entered in [facility]
Allergy/Medication List:
Allergies
Allergy/AdvReac Type Severity Reaction Status Date / Time
chlorthalidone Allergy Hives Verified 05/25/25 14:52
clarithromycin (From Biaxin) Allergy Unknown Verified 05/25/25 14:52
Penicillins Allergy Rash Verified 05/25/25 14:52
Sulfa (Sulfonamide Allergy Rash Verified 05/25/25 14:52
Antibiotics)
Home Medications
apixaban 5 mg tablet (Eliquis) 5 mg PO BID Blood Clot Prevention/Tx 06/29/18
omeprazole 40 mg capsule,delayed release 40 mg PO DAILY Gastrointestinal Issue 06/29/18
famotidine 40 mg tablet 40 mg PO DAILY Gastrointestinal Issue 01/22/22
losartan 50 mg tablet 100 mg PO DAILY Blood Pressure 01/22/22
mirtazapine 15 mg tablet 15 mg PO HS Mental Health/Anxiety 01/22/22
diltiazem HCl 180 mg capsule,extended release 24 hr 180 mg PO BID #30 caps 07/24/22
atorvastatin 20 mg tablet 20 mg PO HS #90 tabs 06/24/23
fluoxetine 20 mg capsule (Prozac) 20 mg PO DAILY Depression 06/24/23
fluticasone propionate 50 mcg/actuation nasal spray,suspension 1 spray intranasal DAILY Allergies 06/24/23
furosemide 40 mg tablet 40 mg PO DAILY #90 tabs 06/24/23
propylene glycol 0.6 % eye drops (Systane Complete) 1 drp ophthalmic (eye) TID PRN dry eyes 06/24/23
fluticasone fur. 100 mcg-umeclid 62.5 mcg-vilant 25 mcg inhalat.powder (Trelegy Ellipta) 1 inh inhalation DAILY Lung/Breathing Issues 10/03/24
dofetilide 125 mcg capsule (Tikosyn) 125 mcg PO Q12H #60 caps 10/05/24
cholecalciferol (vitamin D3) 50 mcg (2,000 unit) capsule (Vitamin D3) 50 mcg PO DAILY 05/25/25
docusate sodium 100 mg capsule (Colace) 100 mg PO DAILY 05/25/25
levalbuterol tartrate 45 mcg/actuation aerosol inhaler 2 inh inhalation Q6H 05/25/25
loratadine 10 mg tablet 10 mg PO DAILY PRN sob 05/25/25
zaleplon 10 mg capsule 10 mg PO HS PRN sleep 05/25/25
Review of Systems
-
Constitutional: Reports No Symptoms
EENT: Reports Runny Nose
Respiratory: Reports No Symptoms and Cough (non-productive)
Cardiac: Reports Palpitations; Denies Chest Pain or Syncope
Abdomen/GI: Reports No Symptoms
: Reports No Symptoms
Musculoskeletal: Reports No Symptoms
Skin: Reports No Symptoms
Neurological: Reports No Symptoms
Endocrine: Reports No Symptoms
Hematologic/Lymphatic: Reports No Symptoms
Psych: Reports No Symptoms
Physical Exam
Vital Signs
Vital Signs
Temp Pulse Resp BP Pulse Ox
98.1 F 127 12 118/66 94
05/25/25 22:18 05/25/25 22:12 05/25/25 22:12 05/25/25 22:12 05/25/25 22:12
Physical Exam
General: Well Developed, Well Nourished and No Apparent Distress
HEENT: NormoCephalic, Moist mucous membranes and Atraumatic
Respiratory: Clear and Wheezes (Scant occasional wheezes); No Non Labored Respirations, Accessory Resp Muscle Use, Decreased Breath Sounds or Clear to Percussion
Cardiac: S1/S2, Irregular Rhythm and Tachycardia; No Murmur, Rub or Peripheral Edema
GI: Soft, Non Tender, Non Distended and Normal Bowel Sounds; No Organomegaly
Rectal: Deferred by Provider
Genito-urinary: Deferred by me
Musculoskeletal: No Clubbing, No Cyanosis and No Edema
Skin: No Rash
Neuro: AO x 3 and Nonfocal/grossly intact
Hematologic/Lymphatic: No Lymphadenopathy
Psych: Calm
Laboratory Results
-
05/25/25 15:12
05/25/25 15:12
Laboratory Results
Total Bilirubin 0.5 mg/dl (0.2-1.3) 05/25/25 15:12
AST 23 U/L (14-36) 05/25/25 15:12
ALT 24 U/L (0-35) 05/25/25 15:12
Alkaline Phosphatase 154 U/L (38-126) H 05/25/25 15:12
Troponin I 0.019 ng/ml 05/25/25 15:12
Data Reviewed
-
Diagnostic Radiology: Image Personally Visualized and interpreted and Report Reviewed by me
Medical Tests (Nuc Med, Echo, EKG etc): Image Personally Visualized and interpreted
Lab Data: Labs Reviewed by me
Old Records: Reviewed
Impression/Plan
-
IMPRESSION:
85-year-old with past medical history significant for atrial flutter/fibrillation status post cardioversion patient currently on diltiazem and Tikosyn as well as anticoagulation with Eliquis who presents to the emergency department with recurrence
of palpitations and dizziness in the setting of 1 week history of cough illness status post antibiotics and prednisone taper. She is found to be in rapid atrial fibrillation. Attempted cardioversion in the Emergency Department was unsuccessful.
Patient placed on Cardizem drip. She is otherwise hemodynamic stable afebrile and in no acute distress. Infectious workup was negative with negative COVID flu and x-ray without any infiltrates. Very scant wheezing with nonproductive cough on
exam, unlikely acute COPD exacerbation. No signs of CHF exacerbation.
PLAN:
Rapid atrial fibrillation -patient is status post ablation and on Tikosyn
- Admit to IVU
- continue diltiazem gtt for rate control
- continue oral tikosyn q 12
- continue eliquis q 12
- given failure of CV in ED, cardiology consult and notified
- diet for now
- continue symptomatic tx for cough
URI - several days of uri, negative covid/flu. Xray clear. No signs of acute infection on exam. Mild occasional wheeze
- prn ipratropium/albuterol
- cough suppression with guafenesin/dextromethorphan
- prednisone taper
- continue home inhalers
MANUELA
- supplemental oxygen hs for now
CHF - no signs of exacerbation
- lasix 40mg po daily
- continue losartan with hold parameters
DVT PPX - on apixaban
Code status - full code
[2025-05-25] MEDS: ELIQUIS 5 MG PO (23:14)
[2025-05-25] MEDS: CARDIZEM 15 MG IV (23:17)
[2025-05-25] MEDS: CARDIZEM 125 IV (23:19)
[2025-05-25] MEDS: TIKOSYN 125 MCG PO (23:50)
[2025-05-26] VITALS (11 sets, daily range): BP systolic 115–149; BP diastolic 56–90; BMI 32.3
--- NOTE | 2025-05-26 03:08 | PTCARENOTE ---
Pt. arrived from ED via stretcher. Pt able to safely ambulate into room on . Pt on tele. Pt on Cardizem gtt at 5 mg per hour. Pt oriented to unit. Call bower within reach, side rails up, will continue to monitor.
[2025-05-26] MEDS: REMERON 15 MG PO ×2 (03:43→21:31)
[2025-05-26] MEDS: LIPITOR 20 MG PO ×2 (03:43→21:31)
[2025-05-26 06:29] LABS: Blood Urea Nitrogen 28 mg/dl (7-17); Calcium 8.8 mg/dl (8.4-10.2); Carbon Dioxide 22 mmol/L (22-30); Chloride 110 mmol/L (98-107); Estimated Creatinine Clearance 38 ml/min; Glucose 97 mg/dl (70-99); Magnesium 2.1 mg/dl (1.6-2.3); Potassium 4.1 mmol/L (3.5-5.1); Sodium 137 mmol/L (135-145); eGFR 44.91
[2025-05-26] MEDS: LASIX 40 MG PO (08:11)
[2025-05-26] MEDS: PEPCID 20 MG PO (08:11)
[2025-05-26] MEDS: PROZAC 20 MG PO (08:11)
[2025-05-26] MEDS: COLACE 100 MG PO (08:11)
[2025-05-26] MEDS: COZAAR 100 MG PO (08:12)
[2025-05-26] MEDS: DELTASONE 20 MG PO (08:12)
[2025-05-26] MEDS: ELIQUIS 5 MG PO ×2 (08:12→19:54)
[2025-05-26] MEDS: PROTONIX 40 MG PO (08:12)
[2025-05-26] MEDS: TIKOSYN 125 MCG PO ×2 (08:13→19:53)
[2025-05-26] MEDS: SYMBICORT 80/4.5 MCG INHALER 2 PUFF INH ×2 (08:54→17:34)
[2025-05-26] MEDS: ROBITUSSIN DM 10 ML PO ×2 (11:16→17:47)
--- NOTE | 2025-05-26 11:53 | W.PN.HOSP.TC ---
Today's Communication/Plan
-
See PN
Assessment / Plan
Assessment / Plan
85yo F with PMHX of Afib on ELiquis. HLD, COPD, CHF, atopic d/o, insomnia came back from her travel to [place] recently and during her travel developed cough. Was managed for oral steroids and Abx at home, but did not improve mych, also was in and
out afib. Clled her PCP and internal communications intern , who sent her to the hospital.
A/P:
#Acute upper respiratory infection, bronchitis
Reasonable to start Ceftriaxone (had only rash for penicillin remotely, will monitor)/Doxy as patient has advanced COPD and high risk for infection
No wheezing and no hypoxia at this time
Antitussives
Mucolytics
COVID-19 and Influenza neg
check Legionella and S.pneumonia urinary Ag
cont bronchodilators
completesteroids titration
#Afib with RVR
2/2 respiratory infection
check TSH
Cardio consult
Cardizem drip in ED, cardioverted to sinus overnight on 05/26/25
telemetry
cont tykosin
#Reactive thrombocytosis
follow CBC
#Chronci HFpEF
#MANUELA
#essential HTN
cont home meds
CPAP at night, or O2
DVt ppx ELiquis
Full code
I have spent at least 58min reviewing chart, test results, communication with consultants and providing direct patient care
Anticipated Discharge: 24 - 48 hours
Subjective/Interval History
-
Date of Service: May 26, 2025
Objective Data
-
Labs:
Laboratory Results
05/26/25
05:28
Sodium 137
Potassium 4.1
Chloride 110 H
Carbon Dioxide 22
BUN 28 H
Creatinine 1.2 H
Glucose 97
Calcium 8.8
Vital Signs:
Vital Signs
Temp Pulse Resp BP Pulse Ox
97.7 F 84 16 135/63 96
05/26/25 11:30 05/26/25 11:30 05/26/25 11:30 05/26/25 11:30 05/26/25 11:30
Review of Systems
-
History Source: Patient
All other systems: Reviewed and negative
Respiratory: Reports Cough
Physical Exam
-
General: No Apparent Distress
HEENT: Normocephalic
Respiratory: Clear to Auscultation; Negative Wheezes
Cardiac: Irregular Rhythm
GI: Soft, Nontender and Nondistended
Musculoskeletal: No Clubbing, No Cyanosis and No Edema
Neuro: Awake, Alert, Oriented and AO x 3
Psych: Calm
[2025-05-26] MEDS: VIBRAMYCIN 100 MG PO ×2 (12:06→19:52)
[2025-05-26] MEDS: ROCEPHIN 1000 MG IV (12:06)
[2025-05-26] MEDS: STERILE WATER FOR INJECTION 10 ML IV (12:07)
--- NOTE | 2025-05-26 13:23 | CON.CAR ---
Addendum entered and electronically signed by Garrett Morris MD 05/26/25 16:11:
I saw and examined the patient.
The Forensic Specialist's note was reviewed and I agree with the note.
Comment:
GEN: No distress, awake, Ox3
HEENT: supple, anicteric, mmm
LUNGS: bialt rhonchi
CV: Reg with ectopy,, S1/S2, 1/6 syst LSB, no gallop
ABD: soft, BS+, NT/ND
EXT: No edema
NEURO: Gross non-focal
SKIN: No rash
Plan:
84-year-old female with past medical history of paroxysmal atrial fibrillation status post PVI x 2 in 2017 and 2021, atrial flutter, hypertension, hyperlipidemia, GERD, MANUELA and CKD 3 presents with cough, palpitations, fatigue, and URI symptoms. The
symptoms began several weeks ago. She noticed earlier this week when she checked her heart rate on a Kardia monitor that she was in atrial fibrillation. She came to the emergency room last night and had a failed cardioversion and continued to have
palpitations and shortness of breath. She spontaneously converted back into sinus rhythm today.
Recommend continue Tikosyn 125 mcg every 12. QTc is stable. Weaned off of IV Cardizem. Will continue oral Cardizem 180 mg p.o. daily at bedtime for now. If heart rate remains elevated or having more atrial rhythm is would increase Cardizem to
120 mg twice daily. Continue Eliquis.
Continue antibiotics to treat UTI/bronchitis. Patient with strep pneumo antigen in urine.
I would be hopeful that her atrial arrhythmias would improve once her infection resolves.
Creat improved and down to 1.2
Continue Lasix 40 mg p.o. daily. proBNP is within normal limits at 442. Of note TSH is somewhat suppressed but free T4 is normal.
Original Note:
Consultation
Consultation Request
Date/Time Consultation Requested: 05/26/2025
Date/Time Consultation Performed: 05/26/2025
Requesting Provider: Dr. Guerrier
Performing Provider: Nadja Figueroa PA-C for Dr. Morris
Reason for Consultation: Paroxysmal atrial fibrillation
Medical History
-
History of Present Illness:
Patient is an 84-year-old female with past medical history significant for atrial flutter/fibrillation, status post ablation, maintained on chronic anticoagulation Eliquis and Tikosyn, hypertension, hyperlipidemia, GERD, MANUELA, COPD/asthma presenting
to the emergency department 05/25/2025 with persistent cough, palpitations and tachycardia. Patient reports she was in [place] for several weeks and during her trip developed URI symptoms with significant cough. She was started on oral steroids and
antibiotics 1 week ago from primary care physician without significant improvement of symptoms. She reports she was negative at home for COVID. During this period of illness she started experiencing palpitations and dizziness which she usually
experiences when she is in atrial fibrillation. Due to her being symptomatic she came to emergency department and was found to be in atrial fibrillation with rapid ventricular response. Cardioversion was attempted in emergency department without
successful gnosticism of sinus rhythm. She was placed on IV diltiazem drip and spontaneously converted to sinus rhythm in the pm head cook of 05/26/2025. She has been compliant with her Eliquis, diltiazem and Tikosyn as outpatient
At time of this evaluation patient currently in sinus rhythm with PVCs noted on telemetry. She was on diltiazem drip which was stopped approximately 1 hour prior to this consultation. Heart rates now 80's to low 90's bpm.
PMH:
Paroxysmal Afib
s/p PVI 06/29/18
s/p PVI 04/08/22
Chronic Eliquis therapy
Atypical atrial flutter
CKD 3b
Nonobstructive CAD by cath 06/2023
medical management of a small caliber 70% OM-1 lesion by cath 06/24/23
COPD/asthma
Sleep apnea
Depression on fluoxetine
Hypertension
Hypercholesterolemia
History of remote SVT
GERD
Past Medical History
Past Medical History: Other (See HPI)
Past Surgical History: Cardiac (PVI ablation 2017, repeat ablation in 2021, cardiac catheterization in 2022), Gynecological (Hysterectomy), Orthopedic (Bunionectomy), Tonsilectomy and Other (Cataract extraction, multiple lumbar injections)
Social History
Tobacco: Non-Smoker
Alcohol: None
Drug: None
Personal:
Living: With Family
Family History
Family History: Reviewed & Not Pertinent
Allergies / Home Medications
Allergy/AdvReac Type Severity Reaction Status Date / Time
chlorthalidone Allergy Hives Verified 05/25/25 14:52
clarithromycin (From Biaxin) Allergy Unknown Verified 05/25/25 14:52
Penicillins Allergy Rash Verified 05/25/25 14:52
Sulfa (Sulfonamide Allergy Rash Verified 05/25/25 14:52
Antibiotics)
�Medication �Instructions �Recorded �Confirmed �Type
apixaban 5 mg tablet (Eliquis) 5 mg PO BID Blood Clot 06/29/18 05/25/25 History
Prevention/Tx
omeprazole 40 mg capsule,delayed 40 mg PO DAILY Gastrointestinal 06/29/18 05/25/25 History
release Issue
famotidine 40 mg tablet 40 mg PO HS Gastrointestinal Issue 01/22/22 05/25/25 History
atorvastatin 20 mg tablet 20 mg PO HS #90 tabs 06/24/23 05/25/25 Rx
fluoxetine 20 mg capsule (Prozac) 20 mg PO DAILY Depression 06/24/23 05/25/25 History
fluticasone propionate 50 1 spray intranasal DAILYPRN PRN 06/24/23 05/25/25 History
mcg/actuation nasal allergies
spray,suspension
furosemide 40 mg tablet 40 mg PO DAILY #90 tabs 06/24/23 05/25/25 Rx
fluticasone fur. 100 mcg-umeclid 1 inh inhalation R HS 10/03/24 05/25/25 History
62.5 mcg-vilant 25 mcg Lung/Breathing Issues
inhalat.powder (Trelegy Ellipta)
dofetilide 125 mcg capsule 125 mcg PO Q12H #60 caps 10/05/24 05/25/25 Rx
(Tikosyn)
Metamucil 1 tsp PO HS 05/25/25 05/25/25 History
acetaminophen 500 mg tablet 1,000 mg PO BIDPRN PRN mild pain 05/25/25 05/25/25 History
(Tylenol Extra Strength)
benzonatate 200 mg capsule 200 mg PO TIDPRN PRN cough 05/25/25 05/25/25 History
cholecalciferol (vitamin D3) 50 50 mcg PO DAILY 05/25/25 05/25/25 History
mcg (2,000 unit) capsule (Vitamin
D3)
diltiazem HCl 180 mg 180 mg PO HS 05/25/25 05/25/25 History
capsule,extended release 24 hr,
controlled
ibuprofen 200 mg tablet (Advil) 400 mg PO DAILYPRN PRN mild pain 05/25/25 05/25/25 History
levalbuterol tartrate 45 2 inh inhalation R Q6HPRN PRN sob 05/25/25 05/25/25 History
mcg/actuation aerosol inhaler
loratadine 10 mg tablet 10 mg PO BID 05/25/25 05/25/25 History
losartan 100 mg tablet 100 mg PO DAILY 05/25/25 05/25/25 History
methylprednisolone 4 mg tablets in 0 mg PO PER PKG DIR 05/25/25 05/25/25 History
a dose pack
mirtazapine 30 mg disintegrating 15 mg PO HS 05/25/25 05/25/25 History
tablet
peg 400-propylene glycol (PF) 0.4 2 drp BOTH EYES TIDPRN PRN dry eyes 05/25/25 05/25/25 History
%-0.3 % eye drops in a dropperette
(Systane (PF))
zaleplon 10 mg capsule 10 mg PO HSPRN PRN sleep 05/25/25 05/25/25 History
Physical Exam
Vital Signs
Temp Pulse Resp BP Pulse Ox
97.7 F 84 16 135/63 96
05/26/25 11:30 05/26/25 11:30 05/26/25 11:30 05/26/25 11:30 05/26/25 11:30
Lab Results
05/25/25 15:12
05/26/25 05:28
Troponin I 0.019 ng/ml 05/25/25 15:12
Hfj-J-Nebemgdlpds Pept 442 pg/ml 05/25/25 15:12
Impression / Plan
-
PCP: Dr. Nelson
Cardiology: Dr. Huggins
Pulm: Dr. Horn
Impression:
Presented 05/25/2025 with palpitations, tachycardia and dizziness
Persistent cough/URI symptoms x 3 weeks
Atrial fibrillation with rapid ventricular response
COVID-negative
Acute URI/bronchitis
Acute UTI positive for strep pneumo ag
Paroxysmal Afib
s/p PVI 06/29/18
s/p PVI 04/08/22
Status post initiation of Tikosyn September 2024
Chronic Eliquis therapy
Atypical atrial flutter
CKD 3b
Nonobstructive CAD by cath 06/2023
medical management of a small caliber 70% OM-1 lesion by cath 06/24/23
COPD/asthma
Sleep apnea
Depression on fluoxetine
Hypertension
Hypercholesterolemia
History of remote SVT
GERD
Echo 07/15/2024: EF 60 to 65%, no significant valve disease
Plan:
- Presented 05/25/2025 with palpitations, tachycardia and dizziness which started after patient has been dealing with URI symptoms including persistent cough for approximately 3 weeks.
- Admission EKG showed atrial fibrillation with rapid ventricular response. Attempted cardioversion in emergency department however was unsuccessful.
- Patient spontaneously converted to sinus rhythm in the pm head cook of 05/26/2025 on diltiazem drip. Currently remains in sinus rhythm. QTc stable at 452 ms
- Weaned off diltiazem drip. Will resume outpatient dosing of Cardizem 180 mg. Dose ordered for this evening. Will give short acting dose of diltiazem. Pending heart rate and rhythm may need to consider up titration
- Continue Tikosyn and Eliquis
- Patient found to be hyperthyroid with TSH of 0.15. Free T4 is pending. This may be contributing to her atrial fibrillation
- Ongoing URI symptoms after recent trip to [place]. COVID-negative. Chest x-ray showed no acute cardiopulmonary process. Patient afebrile. Concern for acute bronchitis. This likely is what exacerbated patient's atrial fibrillation. Mildly
elevated white count at 11.3, likely reactive, also has been on steroid taper. Patient now on IV Vibramycin and Rocephin per primary service
- Strep pneumo positive UIT. Continue doxycycline and ceftriaxone
Discussed with patient, patient's family at bedside, nursing and hospitalist
HPI 05/26/2025:
Patient is an 84-year-old female with past medical history significant for atrial flutter/fibrillation, status post ablation, maintained on chronic anticoagulation Eliquis and Tikosyn, hypertension, hyperlipidemia, GERD, MANUELA, COPD/asthma presenting
to the emergency department 05/25/2025 with persistent cough, palpitations and tachycardia. Patient reports she was in [place] for several weeks and during her trip developed URI symptoms with significant cough. She was started on oral steroids and
antibiotics 1 week ago from primary care physician without significant improvement of symptoms. She reports she was negative at home for COVID. During this period of illness she started experiencing palpitations and dizziness which she usually
experiences when she is in atrial fibrillation. Due to her being symptomatic she came to emergency department and was found to be in atrial fibrillation with rapid ventricular response. Cardioversion was attempted in emergency department without
successful gnosticism of sinus rhythm. She was placed on IV diltiazem drip and spontaneously converted to sinus rhythm in the pm head cook of 05/26/2025. She has been compliant with her Eliquis, diltiazem and Tikosyn as outpatient
At time of this evaluation patient currently in sinus rhythm with PVCs noted on telemetry. She was on diltiazem drip which was stopped approximately 1 hour prior to this consultation. Heart rates now 80's to low 90's bpm.
Data Reviewed
-
EKG: Report Reviewed by me, Discussed with Physician, Discussed with Nurse, Discussed with Patient and Discussed with Family
Radiology: Report Reviewed by me, Discussed with Physician, Discussed with Nurse, Discussed with Patient and Discussed with Family
Labs: Labs Reviewed by me, Discussed with Physician, Discussed with Nurse, Discussed with Patient and Discussed with Family
Old Records: Reviewed
--- NOTE | 2025-05-26 13:33 | W.PN.UPDATE ---
Update Note
Progress Note Update
S.pneumonia Ag [positive - cont Ceftriaxone
[2025-05-26] MEDS: VISBIOME 2 CAP PO (13:48)
[2025-05-26] MEDS: TESSALON PERLES 100 MG PO ×2 (14:00→21:30)
[2025-05-26] MEDS: CARDIZEM 30 MG PO (15:17)
[2025-05-26] MEDS: REFRESH EYE DROPS (PF) 2 DROPS BOTH EYES (19:54)
[2025-05-26] MEDS: MUCINEX 600 MG PO (19:55)
[2025-05-26] MEDS: CARDIZEM CD 180 MG PO (21:30)
[2025-05-26] MEDS: METAMUCIL, KONSYL 1 PACKET PO (21:31)
[2025-05-26] MEDS: AMBIEN 5 MG PO (21:31)
[2025-05-27 03:49] VITALS: BP 152/73
[2025-05-27 06:00] VITALS: BMI 31.9
[2025-05-27] MEDS: SYMBICORT 80/4.5 MCG INHALER 2 PUFF INH ×2 (07:23→19:22)
[2025-05-27] MEDS: VISBIOME 2 CAP PO (08:34)
[2025-05-27] MEDS: TIKOSYN 125 MCG PO ×2 (08:35→20:59)
[2025-05-27] MEDS: MUCINEX 600 MG PO (08:35)
[2025-05-27] MEDS: LASIX 40 MG PO (08:35)
[2025-05-27] MEDS: COLACE 100 MG PO (08:35)
[2025-05-27] MEDS: PEPCID 20 MG PO (08:35)
[2025-05-27] MEDS: COZAAR 100 MG PO (08:35)
[2025-05-27] MEDS: VIBRAMYCIN 100 MG PO (08:35)
[2025-05-27] MEDS: PROTONIX 40 MG PO (08:35)
[2025-05-27] MEDS: DELTASONE 10 MG PO (08:35)
[2025-05-27 08:36] LABS: Blood Urea Nitrogen 21 mg/dl (7-17); Calcium 8.8 mg/dl (8.4-10.2); Carbon Dioxide 25 mmol/L (22-30); Chloride 108 mmol/L (98-107); Estimated Creatinine Clearance 41 ml/min; Glucose 85 mg/dl (70-99); Potassium 4.1 mmol/L (3.5-5.1); Sodium 139 mmol/L (135-145); eGFR 49.86
[2025-05-27] MEDS: TYLENOL 650 MG PO ×2 (08:36→18:25)
[2025-05-27] MEDS: TESSALON PERLES 100 MG PO ×2 (08:36→18:25)
[2025-05-27] MEDS: PROZAC 20 MG PO (08:36)
[2025-05-27] MEDS: ELIQUIS 5 MG PO ×2 (08:36→20:59)
[2025-05-27 09:20] VITALS: BP 159/79
--- NOTE | 2025-05-27 11:43 | PTCARENOTE ---
Pt c/o unrelieved cough and pain throughout lower ribs when coughing. MD made aware, new order provided, see MAR.
[2025-05-27] MEDS: ROCEPHIN 1000 MG IV (11:59)
[2025-05-27] MEDS: STERILE WATER FOR INJECTION 10 ML IV (11:59)
[2025-05-27] MEDS: FLUSH (NSS) 2 FLUSH IV (12:00)
[2025-05-27] MEDS: ROBITUSSIN AC 10 ML PO ×2 (12:02→18:25)
--- NOTE | 2025-05-27 12:22 | CM ---
Patient drove self to . Her [employer], license [id number] is parked in handicapped parking. CM alerted security that her car is at .
She lives with cousin in one level home with 2 steps to enter. She uses CPAP. She has grab bars in shower and comfort height toilet. she has not used VNA or SNF services.
PCP Danuta Simmons
Pharmacy: [facility]
PLAN: home no needs
[2025-05-27 12:40] VITALS: BP 129/73
--- NOTE | 2025-05-27 12:44 | W.PN.CARDCBS ---
Today's Communication / Plan
-
Remains in sinus rhythm with stable corrected QT interval on dofetilide 125 mcg twice daily, continue.
Will sign off, please call us back if needed
Impression / Plan
-
PCP: Dr. Nelson
Cardiology: Dr. Huggins
Pulm: Dr. Horn
Impression:
Presented 05/25/2025 with palpitations, tachycardia and dizziness
Persistent cough/URI symptoms x 3 weeks
Atrial fibrillation with rapid ventricular response
COVID-negative
Acute URI/bronchitis
Acute UTI positive for strep pneumo ag
Paroxysmal Afib
s/p PVI 06/29/18
s/p PVI 04/08/22
Status post initiation of Tikosyn September 2024
Chronic Eliquis therapy
Atypical atrial flutter
CKD 3b
Nonobstructive CAD by cath 06/2023
medical management of a small caliber 70% OM-1 lesion by cath 06/24/23
COPD/asthma
Sleep apnea
Depression on fluoxetine
Hypertension
Hypercholesterolemia
History of remote SVT
GERD
Echo 07/15/2024: EF 60 to 65%, no significant valve disease
Plan:
Paroxysmal atrial fibrillation
Patient spontaneously converted to sinus rhythm in the casino floor walker of 05/26/2025.
Currently remains in sinus rhythm.
Back on outpatient dosing of Cardizem 180 mg. Dose ordered for this evening.
Continue Tikosyn 125 mcg twice daily. ECG in sinus rhythm today May 27, 2025 with corrected QT interval of 450 ms, normal
Maintain Eliquis 5 mg twice daily for atrial fibrillation related thromboembolic risk reduction
Patient found to be hyperthyroid with TSH of 0.15. Free T4 is pending. This may be contributing to her atrial fibrillation
Continue antibiotics to treat UTI/bronchitis. Patient with strep pneumo antigen in urine.
Not adding much else from a cardiac standpoint. Will sign off please call us back if needed
[facility] 05/26/2025:
Patient is an 84-year-old female with past medical history significant for atrial flutter/fibrillation, status post ablation, maintained on chronic anticoagulation Eliquis and Tikosyn, hypertension, hyperlipidemia, GERD, MANUELA, COPD/asthma presenting
to the emergency department 05/25/2025 with persistent cough, palpitations and tachycardia. Patient reports she was in [place] for several weeks and during her trip developed URI symptoms with significant cough. She was started on oral steroids and
antibiotics 1 week ago from primary care physician without significant improvement of symptoms. She reports she was negative at home for COVID. During this period of illness she started experiencing palpitations and dizziness which she usually
experiences when she is in atrial fibrillation. Due to her being symptomatic she came to emergency department and was found to be in atrial fibrillation with rapid ventricular response. Cardioversion was attempted in emergency department without
successful baptist of sinus rhythm. She was placed on IV diltiazem drip and spontaneously converted to sinus rhythm in the casino floor walker of 05/26/2025. She has been compliant with her Eliquis, diltiazem and Tikosyn as outpatient
At time of this evaluation patient currently in sinus rhythm with PVCs noted on telemetry. She was on diltiazem drip which was stopped approximately 1 hour prior to this consultation. Heart rates now 80's to low 90's bpm.
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
Subjective
Date of Service: May 27, 2025
Denies chest pain palpitations or dizziness. Some shortness of breath and coughing.
Objective
Labs:
05/25/25 15:12
05/27/25 07:31
Labs
Hgb 12.8 g/dL (12.0-16.0) 05/25/25 15:12
Hct 38.9 % (37.0-47.0) 05/25/25 15:12
Plt Count 421 10^3/uL (130-400) H 05/25/25 15:12
Sodium 139 mmol/L (135-145) 05/27/25 07:31
Potassium 4.1 mmol/L (3.5-5.1) 05/27/25 07:31
BUN 21 mg/dl (7-17) H 05/27/25 07:31
Creatinine 1.1 mg/dL (0.6-1.0) H 05/27/25 07:31
Glucose 85 mg/dl (70-99) 05/27/25 07:31
Troponins
05/25/25
15:12
Troponin I 0.019
Vital Signs and I&O:
Vital Signs
Temp Pulse Resp BP Pulse Ox
98 F 88 21 129/73 95
05/27/25 12:40 05/27/25 12:40 05/27/25 12:40 05/27/25 12:40 05/27/25 12:40
Vital Signs
Temp Pulse Resp BP Pulse Ox
98 F 88 21 129/73 95
05/27/25 12:40 05/27/25 12:40 05/27/25 12:40 05/27/25 12:40 05/27/25 12:40
Intake & Output
05/25/25 05/26/25 05/27/25 05/28/25
06:59 06:59 06:59 06:59
Intake Total 960 / 960
Balance 960 / 960
Physical Exam
Physical Exam
Well-appearing no distress
Regular rate and rhythm with normal S1 and S2 no S3 no S4 is of a 1/6 apical stock murmur no rubs. PMI is normally placed
Lungs clear to auscultation bilaterally
Abdomen soft nontender nondistended no active bowel
Extremities trace pretibial edema
--- NOTE | 2025-05-27 12:55 | W.PN.HOSP.TC ---
Today's Communication/Plan
-
stop doxy
follow AM labs
if improving - plan for DC in AM
Assessment / Plan
Assessment / Plan
85yo F with PMHX of Afib on ELiquis. HLD, COPD, CHF, atopic d/o, insomnia came back from her travel to [place] recently and during her travel developed cough. Was managed for oral steroids and Abx at home, but did not improve mych, also was in and
out afib. Clled her PCP and roller , who sent her to the hospital.
A/P:
#Acute upper respiratory infection, bronchitis 2/2 Strep.pneumonia
cont Ceftriaxone with eventual cefuroxime, stop doxy
Robitussin
No wheezing and no hypoxia at this time
Antitussives
Mucolytics
COVID-19 and Influenza neg
cont bronchodilators
complete steroids titration
#Afib with RVR
resolved
2/2 respiratory infection
Cardio consult
Cardizem drip in ED, cardioverted to sinus overnight on 05/26/25
telemetry
cont tykosin
#Subclinical hyperthyroidism vs sick euthyroid
repeat TFT in 2-3 weeks with PCP
no idication for treatment with normal FT4 and not complete suppression of TSH
#Reactive thrombocytosis
follow CBC
#Chronic HFpEF
#MANUELA
#essential HTN
#CKD stgae 3a
cont home meds
CPAP at night, or O2
DVt ppx ELiquis
Full code
I have spent at least 38min reviewing chart, test results, communication with consultants and providing direct patient care
Anticipated Discharge: 24 - 48 hours
Subjective/Interval History
-
Date of Service: May 27, 2025
Objective Data
-
Labs:
Laboratory Results
05/27/25
07:31
Sodium 139
Potassium 4.1
Chloride 108 H
Carbon Dioxide 25
BUN 21 H
Creatinine 1.1 H
Glucose 85
Calcium 8.8
Vital Signs:
Vital Signs
Temp Pulse Resp BP Pulse Ox
98 F 88 21 129/73 95
05/27/25 12:40 05/27/25 12:40 05/27/25 12:40 05/27/25 12:40 05/27/25 12:40
I&O
05/26/25 05/27/25 05/28/25
06:59 06:59 06:59
Intake Total 960 / 960
Balance 960 / 960
Review of Systems
-
History Source: Patient
All other systems: Reviewed and negative
EENT: Reports Other (sinus congestion)
Respiratory: Reports Cough
Physical Exam
-
General: No Apparent Distress
Respiratory: Clear to Auscultation
GI: Soft, Nontender and Nondistended
Genito-urinary: No Costovertebral Tender
Musculoskeletal: No Clubbing, No Cyanosis and No Edema
Neuro: Awake, Alert, Oriented and AO x 3
Psych: Calm
[2025-05-27 15:50] VITALS: BP 113/71
[2025-05-27 19:05] VITALS: BP 129/77
[2025-05-27] MEDS: REFRESH EYE DROPS (PF) 1 DROPS OPHTH (21:55)
[2025-05-27] MEDS: LIPITOR 20 MG PO (21:56)
[2025-05-27] MEDS: REMERON 15 MG PO (21:56)
[2025-05-27] MEDS: METAMUCIL, KONSYL 1 PACKET PO (21:56)
[2025-05-27] MEDS: CARDIZEM CD 180 MG PO (21:59)
[2025-05-27 23:33] VITALS: BP 129/75
[2025-05-28] VITALS (16 sets, daily range): BP systolic 86–141; BP diastolic 53–85; PULSE 127–133; BMI 31.7
[2025-05-28 07:30] LABS: Hematocrit 36.6 % (37.0-47.0); Hemoglobin 11.5 g/dL (12.0-16.0); Mean Corp Hgb Conc. 31.4 g/dL (33.0-37.0); Mean Corpuscular Volume 85.1 fL (81.0-99.0); Nucleated Red Blood Cells % 0 %; Platelet Count 397 10^3/uL (130-400); Red Cell Dist. Width 17.7 % (11.5-14.5)
[2025-05-28] MEDS: SYMBICORT 80/4.5 MCG INHALER 2 PUFF INH ×2 (07:36→20:31)
[2025-05-28 07:52] LABS: Blood Urea Nitrogen 20 mg/dl (7-17); Calcium 8.7 mg/dl (8.4-10.2); Carbon Dioxide 25 mmol/L (22-30); Chloride 105 mmol/L (98-107); Estimated Creatinine Clearance 41 ml/min; Glucose 88 mg/dl (70-99); Potassium 3.9 mmol/L (3.5-5.1); Sodium 137 mmol/L (135-145); eGFR 49.86
[2025-05-28] MEDS: PROTONIX 40 MG PO (08:49)
[2025-05-28] MEDS: COLACE 100 MG PO (08:49)
[2025-05-28] MEDS: ELIQUIS 5 MG PO ×2 (08:49→20:01)
[2025-05-28] MEDS: PEPCID 20 MG PO (08:49)
[2025-05-28] MEDS: VISBIOME 2 CAP PO (08:49)
[2025-05-28] MEDS: LASIX 40 MG PO (08:50)
[2025-05-28] MEDS: COZAAR 100 MG PO (08:50)
[2025-05-28] MEDS: TIKOSYN 125 MCG PO ×2 (08:50→21:38)
[2025-05-28] MEDS: PROZAC 20 MG PO (08:50)
[2025-05-28] MEDS: DELTASONE 10 MG PO (08:50)
--- NOTE | 2025-05-28 11:28 | W.PN.HOSP.TC ---
Today's Communication/Plan
-
hold Lasix
Bolus
attempt HR control
Assessment / Plan
Assessment / Plan
85yo F with PMHX of Afib on ELiquis. HLD, COPD, CHF, atopic d/o, insomnia came back from her travel to [place] recently and during her travel developed cough. Was managed for oral steroids and Abx at home, but did not improve mych, also was in and
out afib. Clled her PCP and machine heddle cleaner , who sent her to the hospital.
A/P:
#Acute upper respiratory infection, bronchitis 2/2 Strep.pneumonia
cont Ceftriaxone with eventual cefuroxime, stop doxy
Robitussin
No wheezing and no hypoxia at this time
Antitussives
Mucolytics
COVID-19 and Influenza neg
cont bronchodilators
complete steroids titration
#Afib with RVR
re-occurred on 05/28/25 with orthostatic hypotension and pre-syncope while ambulating. No hypoxia. Hold lasix. Bolus and attempt to regain control.
2/2 respiratory infection
Cardio consult
Cardizem drip in ED, cardioverted to sinus overnight on 05/26/25
telemetry
cont tykosin
#Subclinical hyperthyroidism vs sick euthyroid
repeat TFT in 2-3 weeks with PCP
no idication for treatment with normal FT4 and not complete suppression of TSH
#Reactive thrombocytosis
follow CBC
#Chronic HFpEF
#MANUELA
#essential HTN
#CKD stgae 3a
cont home meds
CPAP at night, or O2
DVt ppx Eliquis
Full code
I have spent at least 58min reviewing chart, test results, communication with consultants and providing direct patient care
Anticipated Discharge: 24 - 48 hours
Subjective/Interval History
-
Date of Service: May 28, 2025
Objective Data
-
Labs:
Laboratory Results
05/28/25
06:25
WBC 8.9
Hgb 11.5 L
Hct 36.6 L
Plt Count 397
Sodium 137
Potassium 3.9
Chloride 105
Carbon Dioxide 25
BUN 20 H
Creatinine 1.1 H
Glucose 88
Calcium 8.7
Vital Signs:
Vital Signs
Temp Pulse Resp BP Pulse Ox
97.5 F 134 18 124/85 96
05/28/25 11:15 05/28/25 11:15 05/28/25 11:15 05/28/25 11:15 05/28/25 11:15
I&O
05/27/25 05/28/25 05/29/25
06:59 06:59 06:59
Intake Total 960 / 960 1440 / 1440
Balance 960 / 960 1440 / 1440
Review of Systems
-
History Source: Patient
All other systems: Reviewed and negative
Physical Exam
-
General: No Apparent Distress
HEENT: Normocephalic
Respiratory: Clear to Auscultation
GI: Soft, Nontender and Nondistended
Musculoskeletal: No Clubbing, No Cyanosis and No Edema
Neuro: Awake, Alert, Oriented and AO x 3
Psych: Calm
[2025-05-28] MEDS: NSS 500 IV (11:33)
[2025-05-28] MEDS: STERILE WATER FOR INJECTION 10 ML IV (11:36)
[2025-05-28] MEDS: ROCEPHIN 1000 MG IV (11:36)
[2025-05-28] MEDS: CARDIZEM 10 MG IV (12:40)
[2025-05-28] MEDS: CARDIZEM 125 IV ×2 (13:58→16:24)
--- NOTE | 2025-05-28 19:15 | PTCARENOTE ---
While in the bathroom in the morning, pt had an episode of dizziness and nausea, stating that she did not feel well. Pt's HR alarming 130s on the monitor. saw pt @bedside. ECG done- pt in afib with RVR. Hr sustaining 110s-120s at rest and
increases to 140s with ambulation. Fluid bolus ordered and administered with no improvement of rate. Cardizem push ordered and administered, still with no rate improvement. Cardizem gtt ordered. Rate started @5ml/hr and increased to 7.5ml/hr. Rate
still running 110s-120s on the monitor, increasing to 130s/140s with ambulation. HR currently 110 on the monitor. BP 96/55 manually. Pt transferred to IMU.
[2025-05-28] MEDS: ROBITUSSIN DM 10 ML PO (20:01)
[2025-05-28] MEDS: TESSALON PERLES 100 MG PO (20:01)
[2025-05-28] MEDS: REMERON 15 MG PO (20:01)
[2025-05-28] MEDS: TYLENOL 650 MG PO (20:01)
[2025-05-28] MEDS: METAMUCIL, KONSYL 1 PACKET PO (20:02)
[2025-05-28] MEDS: LIPITOR 20 MG PO (20:02)
--- NOTE | 2025-05-28 21:20 | PTCARENOTE ---
received pt from 3W at 19:40. Pt aaox3, able to make needs known. Arrived on 7.5ml/hr cardizem gtt. HR 105. Increased gtt to 10ml/hr per protocol. Pt BP soft, most recent BP 106/58. C/o slight dizziness/lightheadedness. Pt instructed to call if
symptoms progress/worsen. Remains in afib on the monitor, HR 90s at this time. Robitussin and tessalon pearls given for harsh cough. Tylenol given for headache. Tikosyn not stocked in [facility], pharmacy notified. Awaiting 20:00 tikosyn dose. VSS. Call
bower and belongings within reach. Pt resting comfortably in bed. Care ongoing.
[2025-05-28] MEDS: CARDIZEM CD 180 MG PO (21:37)
[2025-05-28] MEDS: AMBIEN 5 MG PO (23:04)
[2025-05-29] VITALS (24 sets, daily range): BP systolic 91–150; BP diastolic 55–96; BMI 31.7
[2025-05-29 07:02] LABS: Hematocrit 37.3 % (37.0-47.0); Hemoglobin 12.2 g/dL (12.0-16.0); Mean Corp Hgb Conc. 32.7 g/dL (33.0-37.0); Mean Corpuscular Volume 84.2 fL (81.0-99.0); Nucleated Red Blood Cells % 0 %; Platelet Count 398 10^3/uL (130-400); Red Cell Dist. Width 17.7 % (11.5-14.5)
[2025-05-29] MEDS: SYMBICORT 80/4.5 MCG INHALER 2 PUFF INH ×2 (07:11→20:20)
[2025-05-29 07:23] LABS: ALT (SGPT) 18 U/L (0-35); AST (SGOT) 21 U/L (14-36); Albumin 3.3 g/dl (3.5-5.0); Alkaline Phosphatase 102 U/L (38-126); Blood Urea Nitrogen 22 mg/dl (7-17); Calcium 8.7 mg/dl (8.4-10.2); Carbon Dioxide 24 mmol/L (22-30); Chloride 107 mmol/L (98-107); Estimated Creatinine Clearance 41 ml/min; Glucose 106 mg/dl (70-99); Magnesium 2.2 mg/dl (1.6-2.3); Potassium 3.5 mmol/L (3.5-5.1); Sodium 137 mmol/L (135-145); Total Protein 5.4 g/dl (6.3-8.2); eGFR 49.86
[2025-05-29] MEDS: TESSALON PERLES 100 MG PO ×3 (08:18→20:41)
[2025-05-29] MEDS: ROBITUSSIN DM 10 ML PO ×3 (08:18→20:41)
[2025-05-29] MEDS: TIKOSYN 125 MCG PO ×2 (08:18→20:33)
[2025-05-29] MEDS: ELIQUIS 5 MG PO ×2 (08:18→20:33)
[2025-05-29] MEDS: PROTONIX 40 MG PO (08:18)
[2025-05-29] MEDS: COZAAR 100 MG PO (08:18)
[2025-05-29] MEDS: COLACE 100 MG PO (08:19)
[2025-05-29] MEDS: VISBIOME 2 CAP PO (08:19)
[2025-05-29] MEDS: DELTASONE 10 MG PO (08:19)
[2025-05-29] MEDS: PROZAC 20 MG PO (08:19)
[2025-05-29] MEDS: TYLENOL 650 MG PO ×3 (08:27→22:12)
--- NOTE | 2025-05-29 10:15 | W.PN.HOSP.TC ---
Today's Communication/Plan
-
still on Cardizem drip, pending further cardiology recommendation.
Cont Ceftriaxone
Assessment / Plan
Assessment / Plan
85yo F with PMHX of Afib on ELiquis. HLD, COPD, CHF, atopic d/o, insomnia came back from her travel to [place] recently and during her travel developed cough. Was managed for oral steroids and Abx at home, but did not improve mych, also was in and
out afib. Clled her PCP and horn player , who sent her to the hospital.
A/P:
#Acute upper respiratory infection, bronchitis 2/2 Strep.pneumonia
Sputum Cx pending
cont Ceftriaxone with eventual cefuroxime, stop doxy
Robitussin
No wheezing and no hypoxia at this time
Antitussives
Mucolytics
COVID-19 and Influenza neg
cont bronchodilators
complete steroids titration
#Afib with RVR
re-occurred on 05/28/25 with orthostatic hypotension and pre-syncope while ambulating. No hypoxia. Hold lasix. Bolus and attempt to regain control.
2/2 respiratory infection
Cardio consult
Cardizem drip in ED, cardioverted to sinus overnight on 05/26/25
telemetry
cont tykosin
#Subclinical hyperthyroidism vs sick euthyroid
repeat TFT in 2-3 weeks with PCP - patient verbalized understanding of the instructions
no indication for treatment with normal FT4 and not complete suppression of TSH
#Reactive thrombocytosis
follow CBC
#Chronic HFpEF
#MANUELA
#essential HTN
#CKD stgae 3a
cont home meds
CPAP at night, or O2
DVt ppx Eliquis
Full code
I have spent at least 58min reviewing chart, test results, communication with consultants and providing direct patient care
Anticipated Discharge: > 48 hours
Subjective/Interval History
-
Date of Service: May 29, 2025
Objective Data
-
Labs:
Laboratory Results
05/29/25
06:47
WBC 10.3
Hgb 12.2
Hct 37.3
Plt Count 398
Sodium 137
Potassium 3.5
Chloride 107
Carbon Dioxide 24
BUN 22 H
Creatinine 1.1 H
Glucose 106 H
Calcium 8.7
Total Bilirubin 0.5
AST 21
ALT 18
Alkaline Phosphatase 102
Vital Signs:
Vital Signs
Temp Pulse Resp BP Pulse Ox
97.9 F 95 17 123/96 94
05/29/25 07:41 05/29/25 08:18 05/29/25 08:00 05/29/25 08:18 05/29/25 08:00
I&O
05/28/25 05/29/25 05/30/25
06:59 06:59 06:59
Intake Total 1440 / 1440 960 / 960
Balance 1440 / 1440 960 / 960
Review of Systems
-
History Source: Patient
All other systems: Reviewed and negative
Respiratory: Reports Cough
Physical Exam
-
General: No Apparent Distress
HEENT: Normocephalic
Respiratory: Clear to Auscultation
GI: Soft, Nontender and Nondistended
Neuro: Awake, Alert, Oriented and AO x 3
Psych: Calm
[2025-05-29] MEDS: PEPCID PO (10:21)
[2025-05-29] MEDS: ROCEPHIN 1000 MG IV (11:29)
[2025-05-29] MEDS: STERILE WATER FOR INJECTION 10 ML IV (11:30)
[2025-05-29] MEDS: DUONEB 3 ML INH (14:36)
--- NOTE | 2025-05-29 14:43 | CM ---
URI, Bronchitis, PNA. IV/Rocephin, IV/Cardizem. Discharge POC: Home with no needs vs HH RN.
--- NOTE | 2025-05-29 15:30 | W.PN.CARDCBS ---
Addendum entered and electronically signed by Vidal Huggins DO 05/29/25 19:12:
I saw and examined the patient.
The Telecommunications Professional's note was reviewed and I agree with the note.
Comment:
Recurrent afib in setting of URI sx/broncitis with neb tx.
For now would continue to work on rate control as she is treated for her pulmonary issues.
Increase Cardizem to 120 mg BID with parameters for better rate control.
Cont current dose of Tikosyn
Cont Eliquis
Reviewed with EP.
Discussed with family at bedside including daughter and grandson.
Outpt follow up to be arranged.
Original Note:
Today's Communication / Plan
-
Give diltiazem 30 mg p.o. short acting x 1 now
Change diltiazem extended release to 120 mg twice daily for better rate control
Continue Tikosyn
Continue Eliquis
Impression / Plan
-
PCP: Dr. Nelson
Cardiology: Dr. Huggins
Pulm: Dr. Horn
Impression:
Presented 05/25/2025 with palpitations, tachycardia and dizziness
Persistent cough/URI symptoms x 3 weeks
Atrial fibrillation with rapid ventricular response
COVID-negative
Acute URI/bronchitis
Acute UTI positive for strep pneumo ag
Paroxysmal Afib
s/p PVI 06/29/18
s/p PVI 04/08/22
Status post initiation of Tikosyn September 2024
Chronic Eliquis therapy
Atypical atrial flutter
CKD 3b
Nonobstructive CAD by cath 06/2023
medical management of a small caliber 70% OM-1 lesion by cath 06/24/23
COPD/asthma
Sleep apnea
Depression on fluoxetine
Hypertension
Hypercholesterolemia
History of remote SVT
GERD
Echo 07/15/2024: EF 60 to 65%, no significant valve disease
Plan:
Paroxysmal atrial fibrillation
Patient spontaneously converted to sinus rhythm in the international trade manager of 05/26/2025 but has had continued recurrent paroxysms of atrial fibrillation noted on telemetry for most of 05/29/2025.
Heart rates with atrial fibrillation running in 80s to low with 90 bpm. However patient received DuoNeb and heart rates now persistently elevated following nebulizer.
Patient has been getting Cardizem 180 mg at night. Will give 30 mg p.o. x 1 now and change dose to 120 mg twice daily to allow for better rate control over 24 hours. Can uptitrate as blood pressure and heart rate allows if needed
Continue Tikosyn 125 mcg twice daily. ECG in sinus rhythm May 28, 2025 with corrected QT interval of 448 ms, normal. QTc has been stable on serial EKGs this admission
Maintain Eliquis 5 mg twice daily for atrial fibrillation related thromboembolic risk reduction
Will discuss with electrophysiology possibility of uptitrating Tikosyn. Patient may benefit from another ablation if A-fib persists with improvement of respiratory infection. This can be discussed as outpatient
Patient found to be hyperthyroid with TSH of 0.15 with compensated free T4 1.19. This may be contributing to her atrial fibrillation
Continue antibiotics to treat UTI/bronchitis. Patient with strep pneumo antigen in urine.
Continues with prednisone 10 mg daily
Did discuss DuoNebs may be contributing to her tachycardia and paroxysmal atrial fibrillation. Consider reducing dose as Xopenex no longer available at this institution.
Plan discussed with patient, patient's daughter and grandchildren who are at bedside as well as nursing.
HPI 05/26/2025:
Patient is an 84-year-old female with past medical history significant for atrial flutter/fibrillation, status post ablation, maintained on chronic anticoagulation Eliquis and Tikosyn, hypertension, hyperlipidemia, GERD, MANUELA, COPD/asthma presenting
to the emergency department 05/25/2025 with persistent cough, palpitations and tachycardia. Patient reports she was in [place] for several weeks and during her trip developed URI symptoms with significant cough. She was started on oral steroids and
antibiotics 1 week ago from primary care physician without significant improvement of symptoms. She reports she was negative at home for COVID. During this period of illness she started experiencing palpitations and dizziness which she usually
experiences when she is in atrial fibrillation. Due to her being symptomatic she came to emergency department and was found to be in atrial fibrillation with rapid ventricular response. Cardioversion was attempted in emergency department without
successful mandaeism of sinus rhythm. She was placed on IV diltiazem drip and spontaneously converted to sinus rhythm in the international trade manager of 05/26/2025. She has been compliant with her Eliquis, diltiazem and Tikosyn as outpatient
At time of this evaluation patient currently in sinus rhythm with PVCs noted on telemetry. She was on diltiazem drip which was stopped approximately 1 hour prior to this consultation. Heart rates now 80's to low 90's bpm.
Progress Note - Computer Aided Design Technician
Subjective
Date of Service: May 29, 2025
Cardiology being asked to see patient again after she had recurrent paroxysmal atrial fibrillation/flutter. Patient reports symptomatically she feels like she is slowly improving. Continues to have cough. Still with some mild chest
tightness/soreness. Denies palpitations or rapid heartbeats.
Objective
Labs:
05/29/25 06:47
05/29/25 06:47
Labs
Hgb 12.2 g/dL (12.0-16.0) 05/29/25 06:47
Hct 37.3 % (37.0-47.0) 05/29/25 06:47
Plt Count 398 10^3/uL (130-400) 05/29/25 06:47
Sodium 137 mmol/L (135-145) 05/29/25 06:47
Potassium 3.5 mmol/L (3.5-5.1) 05/29/25 06:47
BUN 22 mg/dl (7-17) H 05/29/25 06:47
Creatinine 1.1 mg/dL (0.6-1.0) H 05/29/25 06:47
Glucose 106 mg/dl (70-99) H 05/29/25 06:47
Vital Signs and I&O:
Vital Signs
Temp Pulse Resp BP Pulse Ox
98.3 F 118 22 107/92 95
05/29/25 11:17 05/29/25 14:36 05/29/25 14:36 05/29/25 12:00 05/29/25 14:36
Vital Signs
Temp Pulse Resp BP Pulse Ox
98.3 F 118 22 107/92 95
05/29/25 11:17 05/29/25 14:36 05/29/25 14:36 05/29/25 12:00 05/29/25 14:36
Intake & Output
05/27/25 05/28/25 05/29/25 05/30/25
06:59 06:59 06:59 06:59
Intake Total 960 / 960 1440 / 1440 960 / 960
Balance 960 / 960 1440 / 1440 960 / 960
Physical Exam
Physical Exam
GEN: No distress, awake, Ox3, sitting in bed, on room air
HEENT: supple, anicteric, mmm
LUNGS: Bilateral rhonchi although less then heard previously; on room air
CV: Irregularly irregular, S1/S2, 1/6 syst LSB, no gallop
ABD: soft, BS+, NT/ND
EXT: No edema, clubbing or cyanosis
NEURO: Gross non-focal
SKIN: No rash, warm, dry, pink
--- NOTE | 2025-05-29 16:19 | PTCARENOTE ---
Dr. Huggins and Dr. Dunn made aware that patient's HR is in the 130's and is in a fib. BP is 91/62. Patient stated that she feels dizzy. Cardiology PA at bedside. Care ongoing.
[2025-05-29] MEDS: CARDIZEM 30 MG PO (16:33)
--- NOTE | 2025-05-29 16:47 | PTCARENOTE ---
Patient AOx3. CAHUILLA. On RA with SpO2 greater than 92%. Frequent harsh non-productive cough. PRN cough medicine given per JAN. Patient c/o B/L rib pain from coughing. PRN tylenol given per JAN. Patient is dyspneic on exertion. A fib on monitor. Bed
rest due to HR being in 140's-150's during ambulation. Cardiology aware. Tolerating diet. Pills in applesauce. Call bower within reach, bed in lowest position, and bed of wheels locked.
[2025-05-29] MEDS: METAMUCIL, KONSYL 1 PACKET PO (20:32)
[2025-05-29] MEDS: REMERON 15 MG PO (20:33)
[2025-05-29] MEDS: PEPCID 20 MG PO (20:33)
[2025-05-29] MEDS: LIPITOR 20 MG PO (20:33)
[2025-05-29] MEDS: CARDIZEM CD 120 MG PO (20:33)
[2025-05-29] MEDS: AMBIEN 5 MG PO (22:14)
--- NOTE | 2025-05-29 23:48 | PTCARENOTE ---
pt remains off cardizem gtt, HR 90-110s. Still with harsh cough. robitussin, marlene pearls and tylenol given for cough and accompanying rib pain. Pt aaox3, able to make needs known. Call bower and belongings within reach. Care ongoing.
[2025-05-30] VITALS (25 sets, daily range): BP systolic 103–155; BP diastolic 55–96; PULSE 102; O2SAT 96; BMI 31.8
--- NOTE | 2025-05-30 05:23 | DOWNTIME ---
There was a [employer] Client Records Technician Downtime on 05/30/2025 from 0100 to 05/30/2025 at 0220. Downtime documentation of patient's care, including medication administrations, has been reconciled in the electronic record per guidelines. Refer to the
patient's paper chart under the miscellaneous tab to see printed paper medication records and downtime forms.
[2025-05-30 06:18] LABS: Hematocrit 37.1 % (37.0-47.0); Hemoglobin 12.0 g/dL (12.0-16.0); Mean Corp Hgb Conc. 32.3 g/dL (33.0-37.0); Mean Corpuscular Volume 83.6 fL (81.0-99.0); Platelet Count 416 10^3/uL (130-400); Red Cell Dist. Width 17.7 % (11.5-14.5)
[2025-05-30 06:41] LABS: Blood Urea Nitrogen 18 mg/dl (7-17); Calcium 8.6 mg/dl (8.4-10.2); Carbon Dioxide 26 mmol/L (22-30); Chloride 102 mmol/L (98-107); Estimated Creatinine Clearance 45 ml/min; Glucose 102 mg/dl (70-99); Potassium 3.9 mmol/L (3.5-5.1); Sodium 133 mmol/L (135-145); eGFR 55.90
[2025-05-30] MEDS: SYMBICORT 80/4.5 MCG INHALER 2 PUFF INH ×2 (07:23→19:12)
--- NOTE | 2025-05-30 09:30 | W.PN.CARDCBS ---
Today's Communication / Plan
-
Recurrent afib in setting of URI sx/broncitis with neb tx. Now back in sinus
Continue rate control strategy with Cardizem which had been increased to 120 mg BID. Would continue this as outpt if bp continues to tolerate
Cont rate control for now as she is treated for her pulmonary issues. Try to limit neb tx as able.
Cont current dose of Tikosyn. QTc has been stable.
Cont Eliquis
Patient found to be hyperthyroid with TSH of 0.15 with compensated free T4 1.19. This may be contributing to her atrial fibrillation as well.
Resume diuretics as bp stable.
Cont pulm toilet as per primary service. Cont steroids.
Outpt follow up to be arranged.
Impression / Plan
-
.
PCP: Dr. Nelson
Cardiology: Dr. Huggins
Pulm: Dr. Horn
Impression:
Presented 05/25/2025 with palpitations, tachycardia and dizziness
Persistent cough/URI symptoms x 3 weeks
Atrial fibrillation with rapid ventricular response
COVID-negative
Acute URI/bronchitis
Acute UTI positive for strep pneumo ag
Paroxysmal Afib
s/p PVI 06/29/18
s/p PVI 04/08/22
Status post initiation of Tikosyn September 2024
Chronic Eliquis therapy
Atypical atrial flutter
CKD 3b
Nonobstructive CAD by cath 06/2023
medical management of a small caliber 70% OM-1 lesion by cath 06/24/23
COPD/asthma
Sleep apnea
Depression on fluoxetine
Hypertension
Hypercholesterolemia
History of remote SVT
GERD
Echo 07/15/2024: EF 60 to 65%, no significant valve disease
Plan:
Recurrent afib in setting of URI sx/broncitis with neb tx. Now back in sinus
Continue rate control strategy with Cardizem which had been increased to 120 mg BID. Would continue this as outpt if bp continues to tolerate
Cont rate control for now as she is treated for her pulmonary issues. Try to limit neb tx as able.
Cont current dose of Tikosyn. QTc has been stable.
Cont Eliquis
Patient found to be hyperthyroid with TSH of 0.15 with compensated free T4 1.19. This may be contributing to her atrial fibrillation as well.
Resume diuretics as bp stable.
Cont pulm toilet as per primary service. Cont steroids.
Outpt follow up to be arranged.
Discussed with nursing.
HPI 05/26/2025:
Patient is an 84-year-old female with past medical history significant for atrial flutter/fibrillation, status post ablation, maintained on chronic anticoagulation Eliquis and Tikosyn, hypertension, hyperlipidemia, GERD, MANUELA, COPD/asthma presenting
to the emergency department 05/25/2025 with persistent cough, palpitations and tachycardia. Patient reports she was in [place] for several weeks and during her trip developed URI symptoms with significant cough. She was started on oral steroids and
antibiotics 1 week ago from primary care physician without significant improvement of symptoms. She reports she was negative at home for COVID. During this period of illness she started experiencing palpitations and dizziness which she usually
experiences when she is in atrial fibrillation. Due to her being symptomatic she came to emergency department and was found to be in atrial fibrillation with rapid ventricular response. Cardioversion was attempted in emergency department without
successful rastafari of sinus rhythm. She was placed on IV diltiazem drip and spontaneously converted to sinus rhythm in the geothermal operations engineer of 05/26/2025. She has been compliant with her Eliquis, diltiazem and Tikosyn as outpatient
At time of this evaluation patient currently in sinus rhythm with PVCs noted on telemetry. She was on diltiazem drip which was stopped approximately 1 hour prior to this consultation. Heart rates now 80's to low 90's bpm.
Progress Note - Fiber Optic Central Office Installer
Subjective
Date of Service: May 30, 2025
Pt seen and examined. No chest pain. Breathing better.
Objective
Labs:
05/30/25 06:03
05/30/25 06:03
Labs
Hgb 12.0 g/dL (12.0-16.0) 05/30/25 06:03
Hct 37.1 % (37.0-47.0) 05/30/25 06:03
Plt Count 416 10^3/uL (130-400) H 05/30/25 06:03
Sodium 133 mmol/L (135-145) L 05/30/25 06:03
Potassium 3.9 mmol/L (3.5-5.1) 05/30/25 06:03
BUN 18 mg/dl (7-17) H 05/30/25 06:03
Creatinine 1.0 mg/dL (0.6-1.0) 05/30/25 06:03
Glucose 102 mg/dl (70-99) H 05/30/25 06:03
Vital Signs and I&O:
Vital Signs
Temp Pulse Resp BP Pulse Ox
97.7 F 78 12 139/75 94
05/30/25 07:30 05/30/25 08:00 05/30/25 08:00 05/30/25 08:00 05/30/25 08:00
Vital Signs
Temp Pulse Resp BP Pulse Ox
97.7 F 78 12 139/75 94
05/30/25 07:30 05/30/25 08:00 05/30/25 08:00 05/30/25 08:00 05/30/25 08:00
Intake & Output
05/28/25 05/29/25 05/30/25 05/31/25
06:59 06:59 06:59 06:59
Intake Total 1440 / 1440 960 / 960
Balance 1440 / 1440 960 / 960
Physical Exam
Physical Exam
General: No acute distress, AAOX3
Neck: Negative JVD
Heart: Regular, Negative S3 positive S1/S2, Negative S4, No murmur
Lungs: CTA b/l, negative wheezes/rales/rhonchi
Abd: Positive BS, NT/ND, neg rebound/rigidity/guarding
Ext: Negative cyanosis/clubbing/edema
Neuro: nonfocal
[2025-05-30] MEDS: ELIQUIS 5 MG PO ×2 (09:46→19:55)
[2025-05-30] MEDS: PROZAC 20 MG PO (09:46)
[2025-05-30] MEDS: COLACE 100 MG PO (09:46)
[2025-05-30] MEDS: TIKOSYN 125 MCG PO ×2 (09:46→19:55)
[2025-05-30] MEDS: VISBIOME 2 CAP PO (09:46)
[2025-05-30] MEDS: PROTONIX 40 MG PO (09:46)
[2025-05-30] MEDS: DELTASONE 10 MG PO (09:47)
[2025-05-30] MEDS: COZAAR 100 MG PO (09:53)
[2025-05-30] MEDS: CARDIZEM CD 120 MG PO ×2 (09:54→19:54)
[2025-05-30] MEDS: ROBITUSSIN DM 10 ML PO ×3 (09:58→19:56)
[2025-05-30] MEDS: TESSALON PERLES 100 MG PO ×3 (09:58→19:56)
[2025-05-30] MEDS: STERILE WATER FOR INJECTION 10 ML IV (11:35)
[2025-05-30] MEDS: ROCEPHIN 1000 MG IV (11:35)
--- NOTE | 2025-05-30 13:19 | W.PN.HOSP.TC ---
Today's Communication/Plan
-
Acapella
PT/OT
if HR stable - d/c in AM
Assessment / Plan
Assessment / Plan
85yo F with PMHX of Afib on ELiquis. HLD, COPD, CHF, atopic d/o, insomnia came back from her travel to [place] recently and during her travel developed cough. Was managed for oral steroids and Abx at home, but did not improve mych, also was in and
out afib. Clled her PCP and paddock judge , who sent her to the hospital.
A/P:
#Acute upper respiratory infection, bronchitis 2/2 Strep.pneumonia
Sputum Cx - colonized with Clover, no need to treat
cont Ceftriaxone with eventual cefuroxime, stop doxy
Robitussin
No wheezing and no hypoxia at this time
Antitussives
Mucolytics
COVID-19 and Influenza neg
cont bronchodilators
complete steroids titration
#Afib with RVR
re-occurred on 05/28/25 with orthostatic hypotension and pre-syncope while ambulating. No hypoxia. Hold lasix. Bolus and attempt to regain control.
2/2 respiratory infection
Cardio consult: increase Cardizem to BID
Cardizem drip in ED, cardioverted to sinus overnight on 05/26/25
telemetry
cont tykosin
#Subclinical hyperthyroidism vs sick euthyroid
repeat TFT in 2-3 weeks with PCP - patient verbalized understanding of the instructions
no indication for treatment with normal FT4 and not complete suppression of TSH
#Reactive thrombocytosis
follow CBC
#Chronic HFpEF
#MANUELA
#essential HTN
#CKD stgae 3a
cont home meds
CPAP at night, or O2
DVt ppx Eliquis
Full code
I have spent at least 38min reviewing chart, test results, communication with consultants and providing direct patient care
Anticipated Discharge: Within 24 hours
Subjective/Interval History
-
Date of Service: May 30, 2025
Objective Data
-
Labs:
Laboratory Results
05/30/25
06:03
WBC 12.9 H
Hgb 12.0
Hct 37.1
Plt Count 416 H
Sodium 133 L
Potassium 3.9
Chloride 102
Carbon Dioxide 26
BUN 18 H
Creatinine 1.0
Glucose 102 H
Calcium 8.6
Vital Signs:
Vital Signs
Temp Pulse Resp BP Pulse Ox
97.6 F 85 23 118/90 94
05/30/25 11:15 05/30/25 12:00 05/30/25 12:00 05/30/25 12:00 05/30/25 12:00
I&O
05/29/25 05/30/25 05/31/25
06:59 06:59 06:59
Intake Total 960 / 960 480 / 480
Balance 960 / 960 480 / 480
Review of Systems
-
History Source: Patient
All other systems: Reviewed and negative
Physical Exam
-
General: No Apparent Distress
HEENT: Normocephalic
Respiratory: Clear to Auscultation
Cardiac: Regular Rhythm
GI: Soft, Nontender and Nondistended
Musculoskeletal: No Clubbing, No Cyanosis and No Edema
Neuro: Awake, Alert, Oriented and AO x 3
Psych: Calm
--- NOTE | 2025-05-30 13:51 | PN.CDI ---
CDI
- -
CDI:
Physician Documentation Request
Admit Date: 05/29/25 10:17
Dear Doctor Shaun,
Patient admitted for upper respiratory infection.
Laboratory Tests
05/25/25 05/30/25
15:12 06:03
Creatinine 1.5 H 1.0
Clarify which of the following accurately represents the patient's renal status:
AMADOR, resolved
Elevated creatinine
Other
Criteria for AMADOR*
1 Increase in serum creatinine by > or = to 0.3 mg/dL (> or = to 26.5 micromol/L) within 48 hours, OR
2 Increase in serum creatinine to > or = to 1.5 times baseline, which is known or presumed to have occurred within 7 days, OR
3 Urine volume < 0.5 nL/kg/hour for six hours
Use of terms such as suspected, likely, concern for, or probable (associated with a specific diagnosis that is being evaluated, monitored, or treated as if it exists) are acceptable and can be coded in the inpatient setting, when documented at the
time of discharge.
Thank you,
Agueda Palmer RN, BSN
CDI Specialist
Available via [place] text
Please use your independent medical judgment in providing your response.
*Source: Kidney Disease: Improving Global Outcomes (KDIGO) 2012
--- NOTE | 2025-05-30 15:04 | PTCARENOTE ---
Patient AOx3. CHILKOOT. On RA with SpO2 greater than 92%. Frequent harsh non-productive cough. PRN cough medicine given per JAN. Patient is dyspneic on exertion. A fib/NSR with first degree on monitor. HR increases to 110's during ambulation. Assist x1
when OOB. Tolerating diet. Pills in applesauce. Call bower within reach, bed in lowest position, and bed of wheels locked.
[2025-05-30] MEDS: TYLENOL 650 MG PO (19:55)
[2025-05-30] MEDS: REMERON 15 MG PO (21:59)
[2025-05-30] MEDS: PEPCID 20 MG PO (21:59)
[2025-05-30] MEDS: AMBIEN 5 MG PO (22:00)
[2025-05-30] MEDS: METAMUCIL, KONSYL 1 PACKET PO (22:00)
[2025-05-30] MEDS: LIPITOR 20 MG PO (22:00)
--- NOTE | 2025-05-30 22:21 | PTCARENOTE ---
Patient AAOx3, [place]. SpO2 95% on room air. Frequent non-productive harsh cough. PRN cough medication administered see JAN. Pt dyspneic on exertion but denies any dizziness. Pt ambulated to the bathroom with standby assistance. Pt HR up to 110 while
ambulating. NSR on the monitor. Pills in applesauce. Pt rings appropriately, call bower within reach.
[2025-05-31] VITALS (11 sets, daily range): BP systolic 116–157; BP diastolic 62–92; BMI 31.7
[2025-05-31 05:28] LABS: Hematocrit 37.1 % (37.0-47.0); Hemoglobin 12.1 g/dL (12.0-16.0); Mean Corp Hgb Conc. 32.6 g/dL (33.0-37.0); Mean Corpuscular Volume 83.4 fL (81.0-99.0); Nucleated Red Blood Cells % 0 %; Platelet Count 403 10^3/uL (130-400); Red Cell Dist. Width 17.7 % (11.5-14.5)
[2025-05-31 06:01] LABS: ALT (SGPT) 19 U/L (0-35); AST (SGOT) 22 U/L (14-36); Albumin 3.5 g/dl (3.5-5.0); Alkaline Phosphatase 110 U/L (38-126); Blood Urea Nitrogen 16 mg/dl (7-17); Calcium 9.0 mg/dl (8.4-10.2); Carbon Dioxide 27 mmol/L (22-30); Chloride 103 mmol/L (98-107); Estimated Creatinine Clearance 50 ml/min; Glucose 104 mg/dl (70-99); Potassium 3.7 mmol/L (3.5-5.1); Sodium 133 mmol/L (135-145); Total Protein 5.8 g/dl (6.3-8.2); eGFR > 60.00
[2025-05-31] MEDS: SYMBICORT 80/4.5 MCG INHALER 2 PUFF INH (07:34)
[2025-05-31] MEDS: TIKOSYN 125 MCG PO (09:26)
[2025-05-31] MEDS: LASIX 40 MG PO (09:27)
[2025-05-31] MEDS: ELIQUIS 5 MG PO (09:27)
[2025-05-31] MEDS: DELTASONE 10 MG PO (09:27)
[2025-05-31] MEDS: PROTONIX 40 MG PO (09:27)
[2025-05-31] MEDS: PROZAC 20 MG PO (09:27)
[2025-05-31] MEDS: TESSALON PERLES 100 MG PO (09:27)
[2025-05-31] MEDS: ROBITUSSIN DM 10 ML PO (09:27)
[2025-05-31] MEDS: COLACE 100 MG PO (09:27)
[2025-05-31] MEDS: VISBIOME 2 CAP PO (09:27)
[2025-05-31] MEDS: COZAAR 100 MG PO (09:28)
[2025-05-31] MEDS: CARDIZEM CD 120 MG PO (09:28)
--- NOTE | 2025-05-31 10:02 | W.PN.HOSP.TC ---
Today's Communication/Plan
-
DC
Assessment / Plan
Assessment / Plan
85yo F with PMHX of Afib on ELiquis. HLD, COPD, CHF, atopic d/o, insomnia came back from her travel to [place] recently and during her travel developed cough. Was managed for oral steroids and Abx at home, but did not improve mych, also was in and
out afib. Called her PCP and nutrition and dietetics instructor , who sent her to the hospital. HR became better controlled on increased Cardizem. Also found Strep Pneumonia bronchitis with eustachian tube dysfunction. improving cough on Ceftriaxone. Recommended
ENT if ear congestion will not resolve on anticongestant. Medically stable to be d/c home
A/P:
#Acute upper respiratory infection, bronchitis 2/2 Strep.pneumonia
Sputum Cx - colonized with Clover, no need to treat
cont Ceftriaxone with eventual cefuroxime, stop doxy
Robitussin
No wheezing and no hypoxia at this time
Antitussives
Mucolytics
COVID-19 and Influenza neg
cont bronchodilators
complete steroids titration
#Eusachian tube dysfunction
b/l ear congestion
no ear pain
congestion resolves on yawning
Nasal decongestant
ENT as outpatient as needed
#Afib with RVR
re-occurred on 05/28/25 with orthostatic hypotension and pre-syncope while ambulating. No hypoxia. Hold lasix. Bolus and attempt to regain control.
2/2 respiratory infection
Cardio consult: increase Cardizem to BID
Cardizem drip in ED, cardioverted to sinus overnight on 05/26/25
telemetry
cont tykosin
#Subclinical hyperthyroidism vs sick euthyroid
repeat TFT in 2-3 weeks with PCP - patient verbalized understanding of the instructions
no indication for treatment with normal FT4 and not complete suppression of TSH
#Reactive thrombocytosis
follow CBC
#Chronic HFpEF
#MANUELA
#essential HTN
#CKD stgae 3a
cont home meds
CPAP at night, or O2
DVt ppx Eliquis
Full code
I have spent at least 38min reviewing chart, test results, communication with consultants and providing direct patient care
Anticipated Discharge: Today
Subjective/Interval History
-
Date of Service: May 31, 2025
Objective Data
-
Labs:
Laboratory Results
05/31/25
05:12
WBC 10.4
Hgb 12.1
Hct 37.1
Plt Count 403 H
Sodium 133 L
Potassium 3.7
Chloride 103
Carbon Dioxide 27
BUN 16
Creatinine 0.9
Glucose 104 H
Calcium 9.0
Total Bilirubin 0.4
AST 22
ALT 19
Alkaline Phosphatase 110
Vital Signs:
Vital Signs
Temp Pulse Resp BP Pulse Ox
98.0 F 82 12 116/91 96
05/31/25 07:33 05/31/25 09:28 05/31/25 08:32 05/31/25 09:28 05/31/25 08:00
I&O
05/30/25 05/31/25 06/01/25
06:59 06:59 06:59
Intake Total 1380 / 1380
Balance 1380 / 1380
Review of Systems
-
History Source: Patient
All other systems: Reviewed and negative
EENT: Reports Other (b/l ear congestion)
Physical Exam
-
General: No Apparent Distress
HEENT: Normocephalic and Other (no ear pain on pinnae manipulation)
Respiratory: Clear to Auscultation
Cardiac: Irregular Rhythm
GI: Soft, Nontender and Nondistended
Skin: Warm
Neuro: Awake, Alert, Oriented and AO x 3
Psych: Calm
--- NOTE | 2025-05-31 10:11 | W.DCSUMMARY ---
Addendum entered and electronically signed by Brendan Dunn MD 05/31/25 11:54:
#Michael on admission resolved next day
Original Note:
Discharge Summary
Discharge Data
Date of Admission: 05/29/25
Date of Discharge: 05/31/25
-
Pending Results: No
Hospital Course
85yo F with PMHX of Afib on ELiquis. HLD, COPD, CHF, atopic d/o, insomnia came back from her travel to [place] recently and during her travel developed cough. Was managed for oral steroids and Abx at home, but did not improve mych, also was in and
out afib. Called her PCP and electronic plotting system operator , who sent her to the hospital. HR became better controlled on increased Cardizem. Also found Strep Pneumonia bronchitis with eustachian tube dysfunction. improving cough on Ceftriaxone. Recommended
ENT if ear congestion will not resolve on anticongestant. Medically stable to be d/c home
I have spent at least 38min reviewing chart, test results, communication with consultants and providing direct patient care
Patient was managed for:
#Acute upper respiratory infection, bronchitis 2/2 Strep.pneumonia
#Eusachian tube dysfunction
#Afib with RVR
#Subclinical hyperthyroidism vs sick euthyroid
#Reactive thrombocytosis
#Chronic HFpEF
#MANUELA
#essential HTN
#CKD stgae 3a
Discharge Plan
-
Patient Disposition: Home (Routine Discharge)
Discharge Diagnosis/Procedures: pneumonia
Diet: Regular
Activity Restrictions/Additional Instructions:
If ear congestion will not resolve in 1-2 weeks - obtain referral to ENT from family doctor
Referrals:
Vidal Huggins DO [Active, Cardiology] - 06/27/25 2:40 pm
Referral Note: You have an appt to see Dr. Huggins's physician retail sales assistant, Giuliana, at the [facility] office on 06/27/25 at 2:40 PM. You are then scheduled to see Dr. Huggins at the [place] office on 07/25/25 at 1:20 PM. Please call [phone] if you need
to reschedule.
Lucita Nelson MD [Family Provider, Internal Medicine] - in two to three weeks
Referral Note: repeat thyroid tests in 2-3 weeks with family doctor
Prescriptions:
New
cefdinir 300 mg capsule
300 mg PO Q12H Qty: 8 0RF
diltiazem HCl 120 mg Capsule,Extended Release 24hr
120 mg PO BID Qty: 60 0RF
Davide-Synephrine (phenylephrine) 0.5 % [place],Non-Aerosol
2 spray intranasal Q4HPRN PRN (Reason: nasal congestion) Qty: 15 0RF
Lactobac/Bifidobac [Visbiome]
2 cap PO DAILY Qty: 30 0RF
Continued
omeprazole 40 MG capsule,delayed release(DR/EC)
40 mg PO DAILY
Eliquis 5 MG tablet
5 mg PO BID
famotidine 40 MG tablet
40 mg PO HS
fluoxetine [Prozac] 20 mg Capsule
20 mg PO DAILY
fluticasone propionate 50 mcg/actuation [place],Suspension
1 spray INTRANASAL DAILYPRN PRN (Reason: allergies)
atorvastatin 20 mg tablet
20 mg PO HS Qty: 90 3RF
furosemide 40 mg tablet
40 mg PO DAILY Qty: 90 3RF
Trelegy Ellipta 100-62.5-25 mcg Blister With Device
1 inh INHALATION R HS
dofetilide [Tikosyn] 125 mcg capsule
125 mcg PO Q12H Qty: 60 11RF
zaleplon 10 mg Capsule
10 mg PO HSPRN PRN (Reason: sleep)
loratadine 10 mg Tablet
10 mg PO BID
levalbuterol tartrate 45 mcg/actuation Hfa Aerosol Inhaler
2 inh INHALATION R Q6HPRN PRN (Reason: sob)
cholecalciferol (vitamin D3) [Vitamin D3] 50 mcg (2,000 unit) Capsule
50 mcg PO DAILY
mirtazapine 30 mg Tablet,Disintegrating
15 mg PO HS
acetaminophen [Tylenol Extra Strength] 500 mg Tablet
1,000 mg PO BIDPRN PRN (Reason: mild pain)
losartan 100 mg Tablet
100 mg PO DAILY
diltiazem HCl 180 mg Capsule,Ext.Rel 24h Degradable
180 mg PO HS
Systane (PF) 0.4-0.3 % Dropperette
2 drp BOTH EYES TIDPRN PRN (Reason: dry eyes)
Metamucil
1 tsp PO HS
Patient Comments:
05/25/2025, 1 heaping tsp per pt.
Discontinued
benzonatate 200 mg Capsule
200 mg PO TIDPRN PRN (Reason: cough)
ibuprofen [Advil] 200 mg Tablet
400 mg PO DAILYPRN PRN (Reason: mild pain)
methylprednisolone 4 mg Tablets,Dose Pack
0 mg PO PER PKG DIR
Patient Comments:
05/25/2025, filled on 05/19/25 for 6-day supply; per pt., she has 2 tablets remaining.
Discharge Orders:
Discharge Patient (As Directed); Ordered 05/31/25
Ordered By: Brendan Dunn
Discharge Date and Time
Print Language: THAI
--- NOTE | 2025-05-31 10:29 | PTCARENOTE ---
Assumed plan of care from [id number]. Patient AOx3. [place]. On RA with SpO2 greater than 92%. Frequent harsh non-productive cough. PRN cough medicine given per JAN. Patient is dyspneic on exertion. NSR with first degree on monitor. Standby assist when
OOB. Tolerating diet. Pills in applesauce. Call bower within reach, bed in lowest position, and bed of wheels locked.
--- NOTE | 2025-05-31 11:51 | CM ---
Patient with Dx Acute upper respiratory infection, bronchitis 2/2 Strep.pneumonia. Room air. PT/OT; recommend HH vs none.
Met with patient who was preparing for discharge. The patient says she feels ready to go home today. IMM completed.
Offered VN for nurse/PT/OT and patient declined saying she can get around her small apartment on her own.
She feels she has adequate support from her cousin who she lives with, who is retired and there all day, as well as her children.
Her son & Dtr will transport her home - they need to both come to hospital as her car is here.
Plan home today.
[2025-05-31] MEDS: STERILE WATER FOR INJECTION 10 ML IV (12:00)
[2025-05-31] MEDS: ROCEPHIN 1000 MG IV (12:00)
--- NOTE | 2025-05-31 13:26 | PTCARENOTE ---
Patient discharged to home. Discharge instructions reviewed and all questions answered. Noted on D/C med list, multiple Diltiazem orders, clarified with cardiology for correct dose (120mg BID). Home med list summary updated in chart. Patient
left via transport to main lobby with family pick.
== END 2025-05-31 13:33 | disposition home or self-care (01) | DRG 202 ==
LOC: IMU 10:17
PROVIDERS: Student in an Organized Health Care Education/Training Program; ADMITTING PHYSICIAN Internal Medicine; ATTENDING PHYSICIAN Internal Medicine; CONSULT PHYSICIAN Internal Medicine Cardiovascular Disease; EMERGENCY PHYSICIAN Emergency Medicine; FAMILY PHYSICIAN Internal Medicine
PROC: 5A2204Z Restoration of Cardiac Rhythm, Single (ICD-10-PCS; 2025-05-26)
DX: J20.9 Acute bronchitis, unspecified (principal); J15.4 Pneumonia due to other streptococci; I13.0 Hypertensive heart and chronic kidney disease with heart failure and stage 1 through stage 4 chronic kidney disease, or unspecified chronic kidney disease; I50.32 Chronic diastolic (congestive) heart failure; J44.0 Chronic obstructive pulmonary disease with (acute) lower respiratory infection; N17.9 Acute kidney failure, unspecified; I48.4 Atypical atrial flutter; D75.838 Other thrombocytosis; N18.31 Chronic kidney disease, stage 3a; G47.33 Obstructive sleep apnea (adult) (pediatric); E05.90 Thyrotoxicosis, unspecified without thyrotoxic crisis or storm; E78.00 Pure hypercholesterolemia, unspecified; Z11.52 Encounter for screening for COVID-19; K21.9 Gastro-esophageal reflux disease without esophagitis; I48.0 Paroxysmal atrial fibrillation; Z88.0 Allergy status to penicillin; Z88.2 Allergy status to sulfonamides; F32.A Depression, unspecified; Z79.899 Other long term (current) drug therapy; H69.90 Unspecified Eustachian tube disorder, unspecified ear; I25.10 Atherosclerotic heart disease of native coronary artery without angina pectoris; I49.3 Ventricular premature depolarization; K58.9 Irritable bowel syndrome, unspecified; Z79.01 Long term (current) use of anticoagulants; Z88.1 Allergy status to other antibiotic agents; Z90.710 Acquired absence of both cervix and uterus
CPT/HCPCS: 71045; 71046; 80048; 80053; 83735; 83880; 84439; 84443; 84484; 85025; 85027; 87070; 87205; 87449; 87502; 87811; 87899; 92960; 93005; 94640; 96374; 97163; 97166; 99152; 99285

== ENCOUNTER → 2025-08-14 14:00 | Outpatient (REF) | payer OTHER, SELFPAY | LOC: HWRCS 14:00 | PROVIDERS: ATTENDING PHYSICIAN Nuclear Medicine Nuclear Cardiology; FAMILY PHYSICIAN Internal Medicine | DX: I50.33 Acute on chronic diastolic (congestive) heart failure (principal); I48.91 Unspecified atrial fibrillation; I25.10 Atherosclerotic heart disease of native coronary artery without angina pectoris | CPT/HCPCS: 93306 ==

== ENCOUNTER → 2025-08-30 11:10 | Outpatient (REF) | payer OTHER, SELFPAY | LOC: WDC 11:10 | PROVIDERS: ATTENDING PHYSICIAN Obstetrics & Gynecology Gynecology; FAMILY PHYSICIAN Internal Medicine | DX: Z12.31 Encounter for screening mammogram for malignant neoplasm of breast (principal) | CPT/HCPCS: 77063; 77067 ==